=== PATIENT | male | born 1935 | race Caucasian/White ===

== ENCOUNTER 2018-02-17 13:13 | Inpatient (IN) | payer OTHER, MEDICAID ==
[2018-02-17] VITALS (7 sets, daily range): BP systolic 0–104; BP diastolic 0–42
[~2018-02-17] VITALS: Ht 188 cm; Wt 101.6 kg
--- NOTE | 2018-02-17 13:15 | NUR ---
ADMITTING DX: ABNORMAL LABS PLACED PATIENT ON A [employer] [id number] VENTILATOR WITH SETTINGS NOTED
--- NOTE | 2018-02-17 13:15 | NUR ---
PATIENT TO BED #7 BY PARAMEDICS
--- NOTE | 2018-02-17 13:24 | NUR ---
PT. CAME IN VIA ALS FROM [facility] DUE TO ABNORMAL LAB OF HGB: 6.5 AND POTASSIUM: 5.6. PT. HAS [address] HAS YELLOW URINE W/ SEDIMENT PRESENT. PT HAS PICC LINE TO R UPPER ARM. PT IS ON A VENT AT TV: 500, AC: 12 PEEP: 5, FIO2: 40%. PATIENT HAS A SACCRAL PRESSURE ULCER PRESENT UPON ARRIVAL. PT HAS PUPILS EQUAL ROUND AND REACTIVE BILATERALLY 2MM TO LIGHT. SKIN WARM AND DRY TO TOUCH. ER MD NOTIFIED. WILL CONTINUE TO MONITOR.
[2018-02-17] MEDS ORDERED: NACL 0.9% 1,000 ML IV ONE ×3 (13:40→17:25)
[2018-02-17] MEDS ORDERED: ZINC220C12 GT (13:48)
[2018-02-17] MEDS ORDERED: NUTR887L11 GT (13:48)
[2018-02-17] MEDS ORDERED: NOVN SUBQ (13:48)
[2018-02-17] MEDS ORDERED: ATOR10TA GT (13:48)
[2018-02-17] MEDS ORDERED: VITA1TAB44 GT (13:48)
[2018-02-17] MEDS ORDERED: FERR-252 GT (13:48)
[2018-02-17] MEDS ORDERED: DOCU-299 GT (13:48)
[2018-02-17] MEDS ORDERED: ASCO500T45 GT (13:48)
[2018-02-17] MEDS ORDERED: AMLO5TAB GT (13:48)
[2018-02-17] MEDS ORDERED: PANT40EC GT (13:48)
[2018-02-17] MEDS ORDERED: METO50TE2 GT (14:00)
[2018-02-17] MEDS ORDERED: KEP500 GT (14:00)
[2018-02-17] MEDS ORDERED: LACT1CAP21 GT (14:00)
--- NOTE | 2018-02-17 14:02 | NUR ---
LAB AT BEDSIDE.
[2018-02-17 14:10] LABS: BASOPHILS % (AUTO) 0.3 % (0.0-2.0); EOSINOPHILS # (AUTO) 0.4 K/uL (0-0.4); EOSINOPHILS % (AUTO) 3.9 % (0.0-4.0); HEMATOCRIT 21.3 % (36-52); LYMPHOCYTES # (AUTO) 1.6 K/uL (2.0-11.5); LYMPHOCYTES % (AUTO) 15.1 % (20.5-51.1); MEAN CORPUSCULAR HEMOGLOBIN 28 pg (27-31); MEAN CORPUSCULAR HGB CONC 29 g/dL (33-37); MEAN CORPUSCULAR VOLUME 94.3 fL (80-94); MONOCYTES # (AUTO) 0.7 K/uL (0.8-1.0); MONOCYTES % (AUTO) 7.1 % (1.7-9.3); NEUTROPHILS # (AUTO) 7.8 K/uL (1.8-7.7); NEUTROPHILS % (AUTO) 73.6 % (42.2-75.2); PLATELET COUNT (AUTO) 365 K/uL (140-450); RED BLOOD CELL COUNT(AUTO) 2.26 MIL/uL (4.20-6.10); RED CELL DISTRIBUTION WIDTH 17.8 % (11.6-13.7); WHITE BLOOD COUNT (AUTO) 10.5 K/uL (4.8-10.8)
--- NOTE | 2018-02-17 14:19 | NUR ---
FLOWER SOLIS CALLED TO REPORT ABNORMAL LABS OF HEMOGLOBIN 6.3 AND HEMATOCRIT 21.3. ER MD DR. LEGER NOTIFIED.
[2018-02-17 14:20] LABS: HEMOGLOBIN 6.3 g/dL (12.0-18.0)
[2018-02-17 14:27] LABS: PROTHROMBIN TIME 11.4 secs (10.8-13.4)
[2018-02-17 14:30] LABS: ALBUMIN 1.5 g/dL (3.4-5.0); ANION GAP 4.5 (8-16); ASPARTATE AMINOTRANSFERASE 131 U/L (15-37); CHLORIDE 123 mmol/L (98-107); CREATININE 1.1 mg/dL (0.7-1.3); GLUCOSE 180 mg/dL (74-106); POTASSIUM 5.1 mmol/L (3.5-5.1); TOTAL BILIRUBIN 0.2 mg/dL (0.0-1.0)
--- NOTE | 2018-02-17 14:33 | NUR ---
HAN Waller FROM LAB CALLED TO REPORT SODIUM : 164. ER MD LEGER NOTIFIED.
[2018-02-17 14:34] LABS: SODIUM SERUM 164 mmol/L (136-145)
[2018-02-17 14:35] LABS: CARBON DIOXIDE 41.6 mmol/L (21-32); UREA NITROGEN, BLOOD 84 mg/dL (7-18)
[2018-02-17] MEDS ORDERED: NACL 0.9% 2,000 ML IV ONE (14:35)
--- NOTE | 2018-02-17 14:35 | NUR ---
HAN Skinner CALLED FROM LAB W/ CRITICAL REPORT OF CO2 : 41.6. ER MD LEGER NOTIFIED.
[2018-02-17] MEDS ORDERED: PIPERACILLIN/TAZOBACTAM 3.375 GM in DEXTROSE 5% 50 ML IV ONE (14:55)
[2018-02-17] MEDS ORDERED: PIPERACILLIN/TAZOBACTAM 3.375 GM VIAL IV ONE (14:59)
[2018-02-17] MEDS ORDERED: ONDANSETRON 4 MG/2 ML VIAL IM/IVP PRN (15:15)
[2018-02-17] MEDS ORDERED: DOCUSATE SODIUM 100 MG GELCAP PO PRN (15:15)
[2018-02-17] MEDS ORDERED: HYDROcodone/APAP 5/325 MG 1 TAB TAB PO PRN (15:15)
[2018-02-17] MEDS ORDERED: MORPHINE SULFATE 2 MG/ML SYR IVP PRN (15:15)
[2018-02-17] MEDS ORDERED: ZOLPIDEM 5 MG TAB PO PRN (15:15)
--- NOTE | 2018-02-17 15:24 | NUR ---
NO EIVDENCE OF PULMONARY DISTRESS NOTED GOOD CHEST RISE BREATHS OUNDS RHONCHI BILATERAL DEEP TRACHEAL SUCTION FOR LARGE YELLOW WITH BLOOD TINGE SECRETIONS AIRWAY PATENT
--- NOTE | 2018-02-17 15:35 | NUR ---
RT AT BEDSIDE. PT IS RESTING COMFORTABLY IN BED. VSS AT THIS TIME. WILL CONTINUE TO MONITOR.
[2018-02-17 15:49] LABS: CHOL/HDL RATIO 3.3 (1-4.5); FREE T4 (FREE THYROXINE) 0.75 ng/dL (0.76-1.46); MAGNESIUM 3.2 mg/dL (1.8-2.4); PHOSPHORUS 3.7 mg/dL (2.5-4.9); THYROID STIMULATING HORMONE 2.24 uIU/mL (0.34-3.74)
[2018-02-17 15:52] LABS: APPEARANCE,URINE CLEAR (CLEAR); BILIRUBIN,URINE NEGATIVE (NEGATIVE); BLOOD, URINE 3+ (NEGATIVE); COLOR,URINE YELLOW (YELLOW); LEUKOCYTE ESTERASE ,URINE 1+ (NEGATIVE); NITRITE, URINE NEGATIVE (NEGATIVE); UGLUCOSE NEGATIVE (NEGATIVE)
[2018-02-17] MEDS ORDERED: DEXT 5% / NACL 0.45% 1,000 ML IV SCH (16:00)
[2018-02-17 16:03] LABS: BARBITURATE, URINE NEG. ng/ml (NEG <=200); BENZODIAZEPINE, URINE NEG. ng/mL (NEG <=200); CANNABINOID, URINE NEG. ng/mL (NEG <=50); COCAINE, URINE NEG. ng/mL (NEG <=300); OPIATE, URINE NEG. ng/mL (NEG <=2000); PHENCYCLIDINE SCREEN,URINE NEG. ng/mL (NEG <=25)
--- NOTE | 2018-02-17 16:05 | NUR ---
TRANSFERRED PATIENT TO [facility] 121-B WITH VENTILATOR INTACT WITH SETTINGS NOTED OXYGEN VIA E-TANKS WITH ADEQUATE PSI SATURATION 100% HR 85 TOLERATED TRANSFER WELL WITHOUT INCIDENT Belen CUTLER RCP AND BRODY NAYAK ATTENDING
--- NOTE | 2018-02-17 16:18 | NUR ---
PATIENT ARRIVED VIA GURNEY ACCOMPANIED BY TWO RESPIRATORY THERAPISTS AND EMERGENCY ROOM RN. PATIENT IS TRACH TO VENT AT THIS TIME. PATIENT RESPIRATIONS NOTED AT 12/MIN. PATIENT IS HYPOTENSIVE UPON VITAL SIGNS CHECK. ER NURSE ENDORSED 2 LITERS FOR ME TO BOLUS PATIENT. ALL VITAL SIGNS ARE WITHIN NORMAL LIMITS. PATIENT HAS MULTIPLE WOUNDS ON COCCYX AREA, HIP, LEFT HEEL, AND BILATERAL EARS. TRANSFERRED PATIENT TO TELEMETRY BED. APPLIED TELE MONITOR LEADS TO PATIENT. PATIENT HAS ZOSYN HANGING. NO REACTION NOTED. PATIENT IS APHASIC AND IS AROUSABLE TO SHAKING. SWABBED PATIENT'S NOSE WITH MRSA SCREEN TOOL. WILL CONTINUE TO MONITOR PATIENT.
--- NOTE | 2018-02-17 16:18 | NUR ---
Patient will be admitted to care of DR. BRIDGES. Admited to TELE. Will go to room 121B. Belongings list completed. Report to SHEN ADAMES .
[2018-02-17 16:50] LABS: RBC,URINE 80-100 /HPF (0-5)
[2018-02-17] MEDS ORDERED: PIPER/TAZO 3.375GM/D5W PREMIX 50 ML IV SCH (16:54)
[2018-02-17] MEDS ORDERED: METO-485 GT (16:57)
--- NOTE | 2018-02-17 17:12 | NUR ---
NO DISTRESS NOTED GOOD CHEST RISE BREATH SOUNDS COARSE RHONCHI BILATERAL DEEP TRACHEAL SUCTION FOR COPIOUS THICK PALE YELLOW WITH BLOOD STRAK SECRETIONS AIRWAY PATENT
--- NOTE | 2018-02-17 17:26 | NUR ---
TRANSFERRED PATIENT TO WOUND CARE BED. PATIENT TOLERATED WELL.
--- NOTE | 2018-02-17 17:26 | NUR ---
GRAPPLE SKIDDER OPERATOR ASSIST PATIENT TRANSFERRED TO A [place] [id number] AIR MATTRESS TOLERATED TRANSFER WELL WITHOUT INCIDENT
--- NOTE | 2018-02-17 17:35 | NUR ---
OBTAINED CONSENT FROM PATIENT'S SON KITTY BABB. PATIENT VERBALIZED PROCEDURE OF GIVING BLOOD TO HIS DAD. SHEN HURT VERIFIED WITH PATIENT'S SON WITH UNDERSTANDING OF PROCEDURE. DR. BLEDSOE AWARE AND SIGNED FORM WELL.
[2018-02-17] MEDS ORDERED: DEXTROSE 50% 50 ML SYR IVP PRN (17:45)
--- NOTE | 2018-02-17 17:55 | NUR ---
CHECKED PATIENT'S VITAL SIGNS. BLOOD PRESSURE IS HYPOTENSIVE AT THIS TIME. ALL VITAL SIGNS WITHIN NORMAL LIMITS. WILL OBTAIN BLOOD FROM BLOOD BANK
--- NOTE | 2018-02-17 18:25 | NUR ---
STARTED BLOOD FOR PATIENT. SITTING AT BEDSIDE MONITORING PATIENT. PATIENT IS HYPOTENSIVE AT THIS TIME. CONNECTED BOLUS LINE TO PATIENT. ALL OTHER VITAL SIGNS ARE STABLE. WILL CONTINUE TO MONITOR PATIENT.
--- NOTE | 2018-02-17 18:40 | NUR ---
PATIENT IS HYPOTENSIVE. ALL VITAL SIGNS ARE STABLE. NO FEVER NOTED. INCREASED PATIENT'S BLOOD TRANSFUSION TO 100 ML/HR. WILL CONTINUE TO MONITOR PATIENT.
--- NOTE | 2018-02-17 19:05 | NUR ---
GAVE REPORT TO NIGHTSHIFT NURSE AT BEDSIDE. PATIENT IS STABLE AT THIS TIME.
--- NOTE | 2018-02-17 19:06 | NUR ---
RECEIVED REPORT FROM DAY SHIFT NURSE ZACARIAS-SHEN. PATIENT IS APHASIC AND IS ABUSABLE TO SHAKING. PATIENT IS TRACH TO VENT AT THIS TIME. RIGHT UPPER ARM PICC LINE. G-TUBE FEEDING AND TAM CATHETER IN PLACE. PATIENT HAS MULTIPLE WOUNDS ON COCCYX AREA, HIP, LEFT HEEL, AND BILATERAL EARS. DISCUSSED PLAN OF CARE HOWEVER PT IS APHASIC AND UNABLE TO VERBALIZE UNDERSTANDING. WHITE BOARD UPDATED. NO S/S OF RESPIRATORY DISTRESS OR DISCOMFORT NOTED AT THIS TIME. BED IN LOWEST POSITION, BED BREAKS ON, SIDE RAILS UP. BED SIDE TABLE AND CALL LIGHT WITHIN REACH. WILL CONTINUE TO MONITOR.
--- NOTE | 2018-02-17 19:10 | NUR ---
PATIENT'S VITAL SIGNS ARE STABLE AT THIS TIME. PATIENT IS STILL HYPOTENSIVE.
[2018-02-17] MEDS: ALBUTEROL SULFATE/IPRATROPIU 3 ML SOL IH SCH (19:26)
--- NOTE | 2018-02-17 19:42 | NUR ---
BLOOD GLUCOSE 91-NO INSULIN COVERAGE NEEDED. WILL CONTINUE TO MONITOR.
--- NOTE | 2018-02-17 20:00 | NUR ---
VITAL SIGNS TAKEN AND TOLERATED WELL. NO S/S OF RESPIRATORY DISTRESS OR DISCOMFORT NOTED AT THIS TIME. WILL CONTINUE TO MONITOR.
[2018-02-17] MEDS: BLOOD GLUCOSE MONITORING 1 DEV DEV FS SCH (20:09)
[2018-02-17] MEDS: METOCLOPRAMIDE 10 MG TAB GT SCH (20:26)
[2018-02-17] MEDS: ATORVASTATIN 20 MG TAB GT SCH (20:26)
[2018-02-17] MEDS: INSULIN NPH HUMAN ISOPHANE 100 UNIT/ML VIAL SUBQ SCH (20:42)
--- NOTE | 2018-02-17 20:44 | NUR ---
SCHEDULED MEDICATION GIVEN VIA G-TUBE AND TOLERATED WELL. G-TUBE HAS ZERO RESIDUAL, PATENT AND FLUSHING WELL. SECOND BAG OF NS 0.9% 1,000ML WAS HUNG TO COMPLETE 2,000ML WIDE OPEN NS ORDER. BLOOD STILL INFUSING AND TOLERATED WELL. WILL CONTINUE TO MONITOR.
--- NOTE | 2018-02-17 20:50 | NUR ---
BLOOD TRANSFUSION COMPLETED. PT TOLERATED WELL. WILL CONTINUE TO MONITOR.
--- NOTE | 2018-02-17 20:58 | NUR ---
PHILLIP ARMIJO AND PHILLIP WOODSON ASSISTING PT WITH PERINEAL CARE. PT TOLERATED WELL. WILL CONTINUE TO MONITOR.
[2018-02-17] MEDS ORDERED: levETIRAcetam 500 MG TAB GT SCH (21:00)
[2018-02-17] MEDS: ACETAMINOPHEN 325 MG TAB PO PRN (22:24)
[2018-02-17 22:27] LABS: ANION GAP 7.4 (8-16); CHLORIDE 125 mmol/L (98-107); GLUCOSE 93 mg/dL (74-106); POTASSIUM 4.4 mmol/L (3.5-5.1)
--- NOTE | 2018-02-17 22:27 | NUR ---
SPOKE WITH DR. MOORE OF PT INCREASING TEMPERATURE AFTER BLOOD TRANSFUSION: 99.8F TEMPORAL AFTER COMPLETION OF BLOOD TRANSFUSION AND NOW 100.8F TEMPORAL. ADVISED TO GIVE TYLENOL 650MG VIA G-TUBE AND START COOLING MEASURES. WILL REASSESS IN ONE HOUR.
[2018-02-17 22:31] LABS: SODIUM SERUM 167 mmol/L (136-145); UREA NITROGEN, BLOOD 72 mg/dL (7-18)
--- NOTE | 2018-02-17 22:35 | NUR ---
SPOKE WITH DR. MAR ABOUT CRITICAL LAB VALUES NA-167, BUN-72, CO2-39. ALSO INFORMED HER THE NS IVF SECOND BAG OF BOLUS IS ABOUT TO FINISH INFUSING. ONCE THAT BAG IS DONE, D5/NS0.45 TO BEGIN IN FUSING. LABS TO FOLLOW IN THE AM. WILL CONTINUE TO MONITOR.
[2018-02-17] MEDS: PIPER/TAZO 3.375GM/D5W PREMIX 50 ML IV SCH (22:51)
[2018-02-18] VITALS (8 sets, daily range): BP systolic 0–131; BP diastolic 0–49
--- NOTE | 2018-02-18 00:13 | NUR ---
SPOKE WITH DR. BOOGIE ABOUT TEMPERATURE STILL ELEVATED ALTHOUGH DECREASED TO 100.1 BOTH TEMPORAL AND AXILIARY. DR ADVISED ME TO GIVE ANOTHER DOSE OF TYLENOL 650MG VIA G-TUBE. IF FEVER HAS NOT BROKEN IN ONE HOUR THEN TO NOTIFY HER AND SHE WILL PUT IN AN ORDER. WILL CONTINUE TO MONITOR.
[2018-02-18] MEDS ORDERED: ACETAMINOPHEN 325 MG TAB PO ONE (01:00)
[2018-02-18 01:30] LABS: ANION GAP 7.5 (8-16); CARBON DIOXIDE 37.7 mmol/L (21-32); CHLORIDE 126 mmol/L (98-107); GLUCOSE 126 mg/dL (74-106); POTASSIUM 4.2 mmol/L (3.5-5.1)
[2018-02-18 01:39] LABS: SODIUM SERUM 167 mmol/L (136-145); UREA NITROGEN, BLOOD 71 mg/dL (7-18)
--- NOTE | 2018-02-18 01:42 | NUR ---
RECEIVED CRITICAL LAB VALUES: NA-167, BUN-71. DR. MOORE IN NURSES STATION AND MADE HER AWARE OF THESE CRITICAL VALUES. SHE WILL CONTINUE WITH PREVIOUS ORDERS.
--- NOTE | 2018-02-18 02:00 | NUR ---
PT CONTINUES TO SLEEP. NO S/S OF RESPIRATORY DISTRESS OR DISCOMFORT NOTED AT THIS TIME. WILL CONTINUE TO MONITOR.
--- NOTE | 2018-02-18 03:00 | NUR ---
SACRAL WOUND CULTURE SWAB COLLECTED AND SENT TO THE LAB.
--- NOTE | 2018-02-18 04:00 | NUR ---
VITAL SIGNS TAKEN AND TOLERATED WELL. NO S/S OF RESPIRATORY DISTRESS OR DISCOMFORT NOTED. TEMPERATURE CONTINUES TO DECREASE. 98.6F-TEMPORAL, 99.4-AXILIARY. DR. MOORE AWARE. WILL CONTINUE TO MONITOR.
[2018-02-18] MEDS: METOCLOPRAMIDE 10 MG TAB GT SCH (04:08)
[2018-02-18] MEDS: PIPER/TAZO 3.375GM/D5W PREMIX 50 ML IV SCH ×3 (04:09→22:54)
--- NOTE | 2018-02-18 04:10 | NUR ---
SCHEDULED MEDICATION GIVEN AND TOLERATED WELL. NO S/S OF RESPIRATORY DISTRESS OR DISCOMFORT NOTED AT THIS TIME. WILL CONTINUE TO MONITOR.
--- NOTE | 2018-02-18 04:30 | NUR ---
BLOOD GLUCOSE 151-WILL ADMINISTER INSULIN COVERAGE PER PROTOCOL.
[2018-02-18] MEDS: BLOOD GLUCOSE MONITORING 1 DEV DEV FS SCH ×4 (04:43→21:34)
[2018-02-18] MEDS ORDERED: DOCUSATE 100 MG/10 ML UDC GT PRN (05:00)
[2018-02-18] MEDS: PANTOPRAZOLE 40 MG INJ VIAL IVP SCH (05:51)
[2018-02-18] MEDS: INSULIN LISPRO SLIDING SCALE 100 UNITS/ML VIAL SUBQ PRN ×4 (06:00→21:34)
--- NOTE | 2018-02-18 06:00 | NUR ---
SCHEDULED MEDICATION, INSULIN GIVEN AND TOLERATED WELL. NO S/S OF RESPIRATORY DISTRESS NOTED AT THIS TIME. WILL CONTINUE TO MONITOR.
[2018-02-18] MEDS ORDERED: PANTOPRAZOLE 40 MG TABEC PO SCH (06:30)
[2018-02-18] MEDS: ALBUTEROL SULFATE/IPRATROPIU 3 ML SOL IH SCH ×3 (07:05→19:59)
[2018-02-18] MEDS ORDERED: DEXT 5% / NACL 0.45% 1,000 ML IV SCH (07:05)
--- NOTE | 2018-02-18 07:05 | NUR ---
RECEIVED REPORT FROM NIGHTSHIFT NURSE AT BEDSIDE. PATIENT IS AWAKE AT THIS TIME. PATIENT IS APHASIC. PATIENT IS TRACH TO VENT. O2 SATURATION AT 100%. NO RESPIRATORY DISTRESS NOTED AT THIS TIME. NO PAIN NOTED. PATIENT DOES NOT PRESENT WITH A FEVER AND BLOOD PRESSURE IS 114/43, 76 HR. PATIENT HAS D5 0.45 NS HANGING AT THIS TIME. PICC LINE NOTED ON RIGHT UPPER ARM DOUBLE LUMEN. MULTIPLE WOUNDS NOTED ON LEFT HEEL, COCCYX AREA, AND BILATERAL EARS. PATIENT ON SEIZURE PRECAUTIONS. LOWERED BED TO LOWEST SETTING. UPDATED BOARD IN PATIENT'S ROOM. APPROPRIATE SIGNS PLACED OUTSIDE OF ROOM. WILL CONTINUE TO MONITOR PATIENT.
--- NOTE | 2018-02-18 07:11 | NUR ---
ENDORSED PT CARE TO DAY SHIFT NURSE EPHRAIM FOR CONTINUITY OF CARE.
--- NOTE | 2018-02-18 07:20 | NUR ---
RECEIVED PATIENT TRACH SHILEY 6 TO VENT ON SETTINGS: AC 500, 12, +5, 50%. VENT CHECK DONE. VENT ALARMS ON AND AUDIBLE. VENT PLUGGED INTO RED OUTLET. VENT ALARMS ON AND AUDIBLE. PULSE OX AT BEDSIDE, ON AND FUNCTIONING. AMBU BAG AT BEDSIDE. AIRWAY SECURE AND PATENT. SUCTIONED MODERATE AMOUNT OF THICK WHITE/PINK SECRETIONS. SCHEDULED BREATHING TREATMENT ADMINISTERED. PATIENT TOLERATED TX WELL, NO ADVERSE SIDE EFFECTS. NO RESPIRATORY DISTRESS NOTED AT THIS TIME. WILL CONTINUE TO MONITOR.
[2018-02-18 07:35] LABS: BASOPHILS # (AUTO) 0.1 K/uL (0.00-0.22); MEAN CORPUSCULAR HGB CONC 30 g/dL (33-37); MONOCYTES # (AUTO) 0.8 K/uL (0.8-1.0); RED BLOOD CELL COUNT(AUTO) 2.49 MIL/uL (4.20-6.10)
[2018-02-18 07:39] LABS: CHLORIDE 123 mmol/L (98-107); CREATININE 1.1 mg/dL (0.7-1.3); GLUCOSE 172 mg/dL (74-106)
[2018-02-18 07:42] LABS: SODIUM SERUM 165 mmol/L (136-145)
[2018-02-18 07:43] LABS: BASOPHILS % (AUTO) 1.1 % (0.0-2.0); EOSINOPHILS # (AUTO) 0.5 K/uL (0-0.4); LYMPHOCYTES % (AUTO) 15.6 % (20.5-51.1); MEAN CORPUSCULAR HEMOGLOBIN 27 pg (27-31); MEAN CORPUSCULAR VOLUME 91.3 fL (80-94); MONOCYTES % (AUTO) 6.3 % (1.7-9.3); NEUTROPHILS # (AUTO) 9.3 K/uL (1.8-7.7); PLATELET COUNT (AUTO) 347 K/uL (140-450); UREA NITROGEN, BLOOD 66 mg/dL (7-18); WHITE BLOOD COUNT (AUTO) 12.8 K/uL (4.8-10.8)
[2018-02-18 07:51] LABS: HEMATOCRIT 22.8 % (36-52)
[2018-02-18 08:07] LABS: HEMOGLOBIN 6.7 g/dL (12.0-18.0)
[2018-02-18] MEDS: levETIRAcetam 100 MG/ML ORASYR GT SCH ×2 (09:02→21:19)
[2018-02-18] MEDS: ZINC SULF 220 MG CAP GT SCH (09:03)
[2018-02-18] MEDS: LACTOBACILLUS RHAMNOSUS GG 1 EACH CAP PO SCH (09:03)
[2018-02-18] MEDS: VIT-B COMP/VIT-C/FOLIC ACID 1 TAB GT SCH (09:03)
[2018-02-18] MEDS: ASCORBIC ACID 500 MG/5 ML ORASYR GT SCH (09:03)
--- NOTE | 2018-02-18 09:22 | NUR ---
PATIENT RESTING IN BED. NO DISTRESS NOTED. WILL CONTINUE TO MONITOR PATIENT.
[2018-02-18] MEDS: INSULIN NPH HUMAN ISOPHANE 100 UNIT/ML VIAL SUBQ SCH ×2 (09:34→21:32)
--- NOTE | 2018-02-18 09:40 | NUR ---
VENT CHECK DONE. NO RESPIRATORY DISTRESS NOTED AT THIS TIME. WILL CONTINUE TO MONITOR.
--- NOTE | 2018-02-18 09:55 | NUR ---
02/18/18 RD INITIAL ASSESSMENT COMPLETED PLEASE REFER TO NUTRITION ASSESSMENT UNDER CARE ACTIVITY FOR ESTIMATED NUTRITIONAL NEEDS. RD RECOMMENDATIONS: 1. IF/WHEN MEDICALLY APPROPRIATE, RECOMMEND STARTING JEVITY 1.2 TO RUN AT 35 ML/HR, INCREASE BY 10 ML Q4H TOLERATED TO GOAL OF 75 ML/HR. AT GOAL OF 75 ML/HR, JEVITY 1.2 WILL PROVIDE 1800 ML, 2160 KCAL, 99.8 GM PROTEIN, AND 1452 ML FREE WATER TO MEET 79% EST KCAL AND 73% EST PROTEIN NEEDS. 2. IF/WHEN MEDICALLY APPOROPRIATE, RECOMMEND STARTING WATER FLUSHES OF 120 ML Q4H TO PROVIDE 720 ML FREE WATER. 3. RECOMMEND ELA QD. 4. RECOMMEND THERAGRAN QD. 5. RD WILL F/U 2-3 DAYS; HIGH RISK. REGGIE HINES, , RDN
--- NOTE | 2018-02-18 11:00 | NUR ---
STARTED PATIENT'S TUBE FEEDING JEVITY 1.2 AT 35 ML/HR. WILL CONTINUE TO MONITOR
--- NOTE | 2018-02-18 11:20 | NUR ---
VENT CHECK DONE. SUCTIONED MODERATE AMOUNT OF THICK WHITE SECRETIONS. NO RESPIRATORY DISTRESS NOTED AT THIS TIME. WILL CONTINUE TO MONITOR.
[2018-02-18] MEDS: THERAHONEY GEL 42.5 GM TP SCH (12:00)
--- NOTE | 2018-02-18 12:00 | NUR ---
CLEANSED PATIENT'S WOUNDS ON BOTTOM SACRAL AREA AND RIGHT HIPS WITH WOUND CARE CLEANSER AND PAT DRY. APPLIED THERAHONEY ONTO PATIENTS WOUNDS. COVERED WOUND WITH HYDROCOLLOID DRESSINGS. PATIENT TOLERATED WELL. WILL CONTINUE TO MONITOR PATIENT.
[2018-02-18] MEDS: DEXTROSE 5% 1,000 ML IV SCH (12:07)
[2018-02-18] MEDS: METOCLOPRAMIDE 10 MG/10 ML SYRP UDC GT SCH ×2 (12:51→21:13)
--- NOTE | 2018-02-18 13:16 | NUR ---
VENT CHECK DONE. SCHEDULED BREATHING TX ADMINISTERED. PATIENT TOELRATED TX WELL. NO ADVERSE SIDE EFFECTS. NO RESPIRATORY DISTRESS NOTED AT THIS TIME. WILL CONTINUE TO MONITOR.
--- NOTE | 2018-02-18 14:50 | NUR ---
PATIENT RESTING. NO DISTRESS NOTED. WILL CONTINUE TO MONITOR PATIENT.
[2018-02-18 15:29] LABS: CARBON DIOXIDE 37.5 mmol/L (21-32); CHLORIDE 124 mmol/L (98-107); GLUCOSE 213 mg/dL (74-106); POTASSIUM 3.5 mmol/L (3.5-5.1); UREA NITROGEN, BLOOD 56 mg/dL (7-18)
[2018-02-18 15:31] LABS: SODIUM SERUM 166 mmol/L (136-145)
[2018-02-18 17:33] LABS: FERRITIN 1742 ng/mL (30-400); FOLIC ACID > 20.00 ng/mL (>3.0)
[2018-02-18] MEDS: ACETAMINOPHEN 325 MG TAB PO SCH ×2 (17:56→20:11)
--- NOTE | 2018-02-18 18:45 | NUR ---
BLOOD TRANSFUSION STARTED. SITTING AT BEDSIDE MONITORING PATIENT. NO SIGNS OF FEVER AT THIS TIME OR ANY KINDS OF REACTION. WILL CONTINUE TO MONITOR
--- NOTE | 2018-02-18 19:23 | NUR ---
GAVE REPORT TO [facility] NURSE. PATIENT STILL RECEIVING BLOOD. PATIENT IN STABLE CONDITION. WILL CONTINUE TO MONITOR PATIENT. Addendum: 02/18/18 at 1937 by Kemal Do II, RN *ENDORSED CARE TO SHEN WILHELM. MELONIE WILL CONTINUE TO MONITOR PATIENT DURING BLOOD TRANSFUSION.
--- NOTE | 2018-02-18 19:25 | NUR ---
RECEIVED PT ON BED, OPEN EYES TO TOUCH WITH TRACKING, APHASIC, TRACH TO VENT, SAT-100% ON 50% FI02, RECEIVING 1ST UNIT PRBC AT THIS TIME VIA RT UA PICC LINE, MONITOR CLOSELY FOR REACTION, VITAL SIGNS PER PROTOCOL, FLACC-0, G-TUBE FEEDING AT 45 ML/H WITH 200ML WATER FLUSH Q4H, MAINTAIN HOB AT ALL TIMES, TAM CATH IN PLACE WITH YELLOW URINE, ON HILL ROM BED, REPOSITION Q2H AND OFFLOAD PRESSURES AREAS, SAFETY MEASURES IN PLACE, PLAN OF CARE DISCUSSED WITH DAUGHTER AT BEDSIDE, CALL LIGHT WITHIN REACH.
[2018-02-18 20:11] LABS: TRANSFERRIN 121 mg/dL (200-370)
--- NOTE | 2018-02-18 20:15 | NUR ---
TEMP-100.5, 70ML G-TUBE RESIDUAL NOTED, DUE BENADRYL AND TYLENOL GIVEN VIA G-TUBE, COOLING MEASURES DONE, ALL NEEDS ANTICIPATED.
--- NOTE | 2018-02-18 20:30 | NUR ---
DR DAIGLE HERE FOR NEPHRO CONSULT, UPDATED ON PT'S CONDITION, WENT TO PT'S ROOM AND TALKED TO DAUGHTER, WITH ORDER FOR BMP Q4H, CALLED LAB AND TALKED TO INDU REGARDING ORDER, WILL DRAW PT, MONITORED CLOSELY.
[2018-02-18] MEDS: ATORVASTATIN 20 MG TAB GT SCH (21:16)
--- NOTE | 2018-02-18 22:10 | NUR ---
1ST UNIT PRBC DONE, NO REACTION NOTED, 2ND UNIT PRBC STARTED, MONITOR FOR REACTION, VITAL SIGNS PER PROTOCOL.
[2018-02-18 22:19] LABS: ANION GAP 11.8 (8-16); CARBON DIOXIDE 33.9 mmol/L (21-32); CHLORIDE 123 mmol/L (98-107); CREATININE 1.1 mg/dL (0.7-1.3); GLUCOSE 195 mg/dL (74-106); POTASSIUM 3.7 mmol/L (3.5-5.1); UREA NITROGEN, BLOOD 52 mg/dL (7-18)
[2018-02-18 22:30] LABS: SODIUM SERUM 165 mmol/L (136-145)
[2018-02-19] VITALS (7 sets, daily range): BP systolic 0–150; BP diastolic 0–54
[2018-02-19] MEDS: ACETAMINOPHEN 325 MG TAB PO SCH (00:03)
--- NOTE | 2018-02-19 00:20 | NUR ---
VITAL SIGNS TAKEN, TEMP-100.0, 110 ML G-TUBE RESIDUAL NOTED, DUE BENADRYL AND TYLENOL GIVEN, DR DAIGLE CALLED AND UPDATED ON PT'S CONDITION, ORDERED TO INCREASED G-TUBE FREE WATER FLUSH TO 200ML Q2H UNTIL 0800 TODAY THEN GO BACK TO 200ML Q4H, AWARE OF 110ML RESIDUAL JUST NOW, 2ND UNIT PRBC ON-GOING, CONTINUE TO REPOSITION Q2H AND OFFLOAD PRESSURE AREAS, MONITORED CLOSELY.
[2018-02-19 00:32] LABS: ANION GAP 8.7 (8-16); CARBON DIOXIDE 35.8 mmol/L (21-32); CHLORIDE 124 mmol/L (98-107); GLUCOSE 202 mg/dL (74-106); POTASSIUM 3.5 mmol/L (3.5-5.1); UREA NITROGEN, BLOOD 47 mg/dL (7-18)
[2018-02-19 00:37] LABS: SODIUM SERUM 165 mmol/L (136-145)
--- NOTE | 2018-02-19 00:48 | NUR ---
DR CHOWDHURY CHANGED FREE WATER FLUSH TO 200L Q2H, FEEDING PUMP SETTING ONLY ALLOWED FREE WATER FLUSH TO Q3H THE LOWEST SETTING, DR CHOWDHURY MADE AWARE, SHE SAID "THATS YANIRA, MAINTAINED IT TO 200ML Q3H", ORDER CARRIED OUT.
[2018-02-19] MEDS: DEXTROSE 5% 1,000 ML IV SCH ×3 (01:18→23:09)
[2018-02-19] MEDS: METOCLOPRAMIDE 10 MG/10 ML SYRP UDC GT SCH ×3 (04:09→20:07)
[2018-02-19] MEDS: PIPER/TAZO 3.375GM/D5W PREMIX 50 ML IV SCH ×3 (04:10→20:12)
--- NOTE | 2018-02-19 04:10 | NUR ---
220 ML RESIDUAL NOTED, FEEDING HOLD PER PARAMETER, DR CHOWDHURY MADE AWARE, DUE MEDS ADMINISTERED VIA G-TUBE, WILL RECHECKED RESIDUAL LATER, VITAL SIGNS STABLE, TEMP-99.8, IVF INFUSING WELL, MONITORED CLOSELY.
[2018-02-19 04:52] LABS: ANION GAP 7.4 (8-16); CARBON DIOXIDE 36.1 mmol/L (21-32); CHLORIDE 123 mmol/L (98-107); GLUCOSE 217 mg/dL (74-106); POTASSIUM 3.5 mmol/L (3.5-5.1); UREA NITROGEN, BLOOD 46 mg/dL (7-18)
[2018-02-19 05:10] LABS: SODIUM SERUM 163 mmol/L (136-145)
[2018-02-19] MEDS: PANTOPRAZOLE 40 MG INJ VIAL IVP SCH (05:30)
--- NOTE | 2018-02-19 05:30 | NUR ---
70 ML RESIDUAL NOTED, DR SAM MADE AWARE, STATED IT'S YANIRA TO RESTART FEEDING, ORAL CARE DONE USING VAP KIT, TOLERATED WELL, MONITORED CLOSELY.
[2018-02-19] MEDS: INSULIN LISPRO SLIDING SCALE 100 UNITS/ML VIAL SUBQ PRN ×4 (05:45→20:23)
[2018-02-19] MEDS: BLOOD GLUCOSE MONITORING 1 DEV DEV FS SCH ×4 (06:30→21:16)
[2018-02-19] MEDS: ALBUTEROL SULFATE/IPRATROPIU 3 ML SOL IH SCH ×3 (07:15→19:23)
--- NOTE | 2018-02-19 07:28 | NUR ---
PT SLEEPING, NO SIGNS OF DISTRESS, REPORT GIVEN TO RN DENNIS FOR CONTINUITY OF CARE.
--- NOTE | 2018-02-19 07:30 | NUR ---
RECEIVED PT ALERT, APHASIC. NO SIGNS OF PAIN. WITH TRACH ATTACHED TO MECHANICAL VENT. NO SOB NOTED. PT DOES EYE TRACKING. WITH PICC LINE ON RT UPPER ARM PATENT AND INTACT. RT AND LT UPPER EXTREMITIES SWOLLEN, ELEVATED WITH PILLOWS. CHEST, DIMINISHED AIR ENTRY TO THE BASES, OTHERWISE CLEAR. ABDOMEN SOFT, BOWEL SOUNDS PRESENT, WITH G-TUBE IN PLACE, RESIDUAL 100 MLS. WITH TAM CATHETER DRAINING MODERATE AMOUNTS OF CLEAR SLIGHTLY HANNAH URINE. WILL REPOSITION PT EVERY 2 HRS. CALL LIGHT WITHIN, BED ON LOW POSITION WITH 3 SIDE RAILS UP.
--- NOTE | 2018-02-19 07:36 | NUR ---
RECEIVED PATIENT TRACH SHILEY 6 TO VENT ON DOCUMENTED SETTINGS: AC 12, 500,+5, 50%. VENT CHECK DONE. VENT ALARMS ON AND AUDIBLE. AMBU BAG AT BEDSIDE. SCHEDULED BREATHING TREATMENT ADMINISTERED. NO ADVERSE SIDE EFFECTS. AIRWAY SECURE AND PATENT. SUCTIONED SMALL AMOUNT OF THICK WHITE SECRETIONS. ORAL CARE PROVIDED. NO RESPIRATORY DISTRESS AT THIS TIME. WILL CONTINUE TO MONITOR.
[2018-02-19 07:41] LABS: BASOPHILS % (AUTO) 0.3 % (0.0-2.0); EOSINOPHILS # (AUTO) 0.5 K/uL (0-0.4); HEMATOCRIT 26.9 % (36-52); HEMOGLOBIN 8.5 g/dL (12.0-18.0); LYMPHOCYTES # (AUTO) 1.7 K/uL (2.0-11.5); LYMPHOCYTES % (AUTO) 16.2 % (20.5-51.1); MEAN CORPUSCULAR HEMOGLOBIN 28 pg (27-31); MEAN CORPUSCULAR HGB CONC 32 g/dL (33-37); MEAN CORPUSCULAR VOLUME 87.9 fL (80-94); MONOCYTES # (AUTO) 0.6 K/uL (0.8-1.0); NEUTROPHILS # (AUTO) 7.6 K/uL (1.8-7.7); NEUTROPHILS % (AUTO) 72.5 % (42.2-75.2); PLATELET COUNT (AUTO) 357 K/uL (140-450); RED BLOOD CELL COUNT(AUTO) 3.06 MIL/uL (4.20-6.10); RED CELL DISTRIBUTION WIDTH 17.4 % (11.6-13.7); WHITE BLOOD COUNT (AUTO) 10.5 K/uL (4.8-10.8)
[2018-02-19 07:54] LABS: ANION GAP 10.6 (8-16); CARBON DIOXIDE 34.8 mmol/L (21-32); CHLORIDE 122 mmol/L (98-107); GLUCOSE 209 mg/dL (74-106); POTASSIUM 3.4 mmol/L (3.5-5.1); UREA NITROGEN, BLOOD 41 mg/dL (7-18)
[2018-02-19 08:00] LABS: MAGNESIUM 2.4 mg/dL (1.8-2.4); PHOSPHORUS 3.4 mg/dL (2.5-4.9); SODIUM SERUM 164 mmol/L (136-145)
--- NOTE | 2018-02-19 09:10 | NUR ---
VENT CHECK DONE. NO RESPIRATORY DISTRESS AT THIS TIME. WILL CONTINUE TO MONITOR.
[2018-02-19] MEDS: levETIRAcetam 100 MG/ML ORASYR GT SCH ×2 (09:22→20:07)
[2018-02-19] MEDS: VIT-B COMP/VIT-C/FOLIC ACID 1 TAB GT SCH (09:22)
[2018-02-19] MEDS: ASCORBIC ACID 500 MG/5 ML ORASYR GT SCH (09:22)
[2018-02-19] MEDS: ZINC SULF 220 MG CAP GT SCH (09:22)
[2018-02-19] MEDS: LACTOBACILLUS RHAMNOSUS GG 1 EACH CAP PO SCH (09:22)
[2018-02-19] MEDS: INSULIN NPH HUMAN ISOPHANE 100 UNIT/ML VIAL SUBQ SCH ×2 (09:24→20:23)
--- NOTE | 2018-02-19 09:30 | NUR ---
LATEST G-TUBE RESIDUAL: 120 MLS, FEEDING STILL AT 55 MLS/HR. WILL CONTINUE TO MONITOR.
[2018-02-19 09:38] LABS: ANION GAP 9.6 (8-16); CARBON DIOXIDE 34.8 mmol/L (21-32); CHLORIDE 122 mmol/L (98-107); GLUCOSE 224 mg/dL (74-106); POTASSIUM 3.4 mmol/L (3.5-5.1); UREA NITROGEN, BLOOD 39 mg/dL (7-18)
[2018-02-19 09:44] LABS: SODIUM SERUM 163 mmol/L (136-145)
[2018-02-19 10:06] LABS: HEPATITIS A ANTIBODY IGM Negative (Negative); HEPATITIS B CORE AB TOTAL Negative (Negative); HEPATITIS B SURFACE ANTIBODY Non Reactive (.); HEPATITIS B SURFACE ANTIGEN Negative (Negative)
--- NOTE | 2018-02-19 11:14 | NUR ---
VENT CHECK DONE. NO RESPIRATORY DISTRESS AT THIS TIME. WILL CONTINUE TO MONITOR.
--- NOTE | 2018-02-19 12:00 | NUR ---
PT MORE ALERT AT THIS TIME, DAUGHTER TALKING TO PT AT THE BEDSIDE.
--- NOTE | 2018-02-19 12:00 | NUR ---
PT'S G-TUBE RESIDUAL: 200 MLS, WILL HOLD FEEDING FOR AN HOUR.
[2018-02-19 12:10] LABS: OSMOLALITY,URINE 502 mOsmol/kg (.)
[2018-02-19] MEDS: THERAHONEY GEL 42.5 GM TP SCH (13:00)
--- NOTE | 2018-02-19 13:00 | NUR ---
G-TUBE RESIDUAL RECHECKED: 50 MLS, FEEDING RATE STILL AT 55 MLS/HR.
--- NOTE | 2018-02-19 13:20 | NUR ---
VENT CHECK DONE. SCHEDULED BREATHING TREATMENT ADMINISTERED. PT TOLERATED TX WELL, NO ADVERSE SIDE EFFECTS. SCHEDULED LARGE AMOUNT OF THICK PALE YELLOW SECRETIONS. NO RESPIRATORY DISTRESS NOTED AT THIS TIME. WILL CONTINUE TO MONITOR.
[2018-02-19 13:39] LABS: ANION GAP 8.4 (8-16); CARBON DIOXIDE 34.9 mmol/L (21-32); CHLORIDE 121 mmol/L (98-107); GLUCOSE 238 mg/dL (74-106); POTASSIUM 3.3 mmol/L (3.5-5.1); UREA NITROGEN, BLOOD 34 mg/dL (7-18)
[2018-02-19 13:44] LABS: SODIUM SERUM 161 mmol/L (136-145)
--- NOTE | 2018-02-19 15:40 | NUR ---
VENT CHECK DONE. SUCTIONED SMALL AMOUNT OF THICK YELLOW SECRETIONS. NO RESPIRATORY DISTRESS AT THIS TIME. WILL CONTINUE TO MONITOR.
--- NOTE | 2018-02-19 16:00 | NUR ---
PT'S LATEST TEMP : 100.3 F, COOLING MEASURES STARTED. WILL CONTINUE TO MONITOR.
[2018-02-19] MEDS: ACETAMINOPHEN 325 MG TAB PO PRN (16:29)
--- NOTE | 2018-02-19 16:30 | NUR ---
TEMPERATURE RECHECKED: 100.4 F, TYLENOL VIA GT TUBE GIVEN PRN. WILL CONTINUE TO MONITOR.
--- NOTE | 2018-02-19 17:50 | NUR ---
VENT CHECK DONE. TRACH CARE PERFORMED WITHOUT INCIDENT. NO RESPIRATORY DISTRESS AT THIS TIME. WILL CONTINUE TO MONITOR.
--- NOTE | 2018-02-19 18:00 | NUR ---
LATEST G-TUBE RESIDUAL: 50 MLS, FEEDING INCREASED TO 65 MLS/HR.
[2018-02-19 18:18] LABS: ANION GAP 9.3 (8-16); CARBON DIOXIDE 34.1 mmol/L (21-32); CHLORIDE 118 mmol/L (98-107); GLUCOSE 230 mg/dL (74-106); POTASSIUM 3.4 mmol/L (3.5-5.1); SODIUM SERUM 158 mmol/L (136-145); UREA NITROGEN, BLOOD 30 mg/dL (7-18)
--- NOTE | 2018-02-19 19:05 | NUR ---
PT RESTING. NO SOB NOTED. NO SIGNS OF PAIN. ENDORSED TO NEXT SHIFT NURSE FOR CONTINUITY OF CARE.
--- NOTE | 2018-02-19 19:10 | NUR ---
RECEIVED PT AWAKE LYING ON BED, AAOX4, CALM AND COOPERATIVE, VITAL SIGNS STABLE, IVF INFUSING WELL, AWAITING DR Rodrigo NAVARRO, PT'S WANTS TO GO HOME AND REQUESTING PRESCRIPTION FOR ATIVAN, WILL INFORM DR NAVARRO WHEN HE COMES IN, SAFETY MEASURES IN PLACE, CONTINUE TO MONITOR FOR SIGNS OF ALCOHOL WITHDRAWAL, CALL LIGHT WITHIN REACH. Addendum: 02/19/18 at 2309 by Dexter Justin RN CHARTED ON WRONG PT.
--- NOTE | 2018-02-19 19:15 | NUR ---
RECEIVED PT ON BED, OPEN EYES TO TOUCH WITH TRACKING, APHASIC, TRACH TO VENT, SAT-97% ON 50% FI02, NO SOB NOTED, IVF OF D5W AT 125ML/H VIA RT UA PICC LINE, FLACC-0, TEMP-100.8, TYLENOL JUST GIVEN AT 1629, COOLING MEASURES DONE, G-TUBE FEEDING AT 65 ML/H WITH 200ML WATER FLUSH Q3H, MAINTAIN HOB AT ALL TIMES, TAM CATH IN PLACE WITH YELLOW URINE, ON HILL ROM BED, REPOSITION Q2H AND OFFLOAD PRESSURES AREAS, SAFETY MEASURES IN PLACE, CALL LIGHT WITHIN REACH
[2018-02-19] MEDS: METOPROLOL 50 MG TAB PO SCH (20:05)
[2018-02-19] MEDS: ATORVASTATIN 20 MG TAB GT SCH (20:06)
[2018-02-19] MEDS: amLODIPine 5 MG TAB PO SCH (20:06)
--- NOTE | 2018-02-19 20:10 | NUR ---
100ML RESIDUAL NOTED, DUE MEDS ADMINISTERED, TOLERATED WELL, BLOOD SUGAR CHECKED WITH 214 RESULT, RISS AND DUE HUMULIN N ADMINISTERED, REPOSITION AND OFF LOAD PRESSURE AREAS, CONTINUE COOLING MEASURES, NEEDS ANTICIPATED.
--- NOTE | 2018-02-19 23:11 | NUR ---
PT OPEN EYES TO TOUCH, VITAL SIGNS STABLE, TEMP-99.4, 120 ML RESIDUAL NOTED, CONTINUE G-TUBE FEEDING, ORAL CARE DONE WITH VAP KIT, REPOSITIONED AND OFFLOAD PRESSURE AREAS, CONTINUE TO MONITOR CLOSELY.
[2018-02-20] VITALS: BP 138/52
[2018-02-20] MEDS: DEXTROSE 5% 1,000 ML IV SCH ×3 (00:56→10:18)
--- NOTE | 2018-02-20 03:20 | NUR ---
220 ML RESIDUAL NOTED, FEEDING HOLD PER PARAMETER, WILL RECHECKED RESIDUAL LATER, VITAL SIGNS STABLE, AFEBRILE, FLACC-0, ORAL CARE DONE WITH VAP KIT, SUCTION SECRETION PRN, IVF INFUSING WELL, MONITORED CLOSELY.
[2018-02-20 04:00] VITALS: BP 129/52
[2018-02-20] MEDS: PIPER/TAZO 3.375GM/D5W PREMIX 50 ML IV SCH ×3 (04:23→20:40)
[2018-02-20] MEDS: METOCLOPRAMIDE 10 MG/10 ML SYRP UDC GT SCH ×3 (04:24→20:40)
--- NOTE | 2018-02-20 05:20 | NUR ---
60ML RESIDUAL NOTED, RESUMED G-TUBE FEEDING, MAINTAIN HOB ELEVATED AT ALL TIMES, BM X2 WITH LARGE SLIGHTLY LOOSE STOOL, DUE MEDS ADMINISTERED, MONITORED CLOSELY.
[2018-02-20] MEDS: PANTOPRAZOLE 40 MG INJ VIAL IVP SCH (05:57)
[2018-02-20] MEDS: INSULIN LISPRO SLIDING SCALE 100 UNITS/ML VIAL SUBQ PRN ×4 (06:00→20:49)
--- NOTE | 2018-02-20 06:00 | NUR ---
BLOOD SUGAR CHECKED WITH 221 RESULT, COVERAGE GIVEN, DR FREDA CERNA HERE FOR NEPHRO CONSULT, UPDATED ON PT'S CONDITION, MADE AWARE OF CONTINUING EDEMA OF UPPER EXTREMITIES, STATED "IT'S DEPENDENT EDEMA, WILL WAIT FOR AM LAB RESULTS TO ADJUST FLUID INTAKE", WILL ENDORSE.
[2018-02-20 07:09] LABS: BASOPHILS # (AUTO) 0.2 K/uL (0.00-0.22); BASOPHILS % (AUTO) 2.1 % (0.0-2.0); EOSINOPHILS # (AUTO) 0.6 K/uL (0-0.4); EOSINOPHILS % (AUTO) 5.7 % (0.0-4.0); HEMATOCRIT 23.3 % (36-52); HEMOGLOBIN 7.5 g/dL (12.0-18.0); LYMPHOCYTES # (AUTO) 1.7 K/uL (2.0-11.5); MEAN CORPUSCULAR HEMOGLOBIN 28 pg (27-31); MEAN CORPUSCULAR HGB CONC 32 g/dL (33-37); MEAN CORPUSCULAR VOLUME 85.7 fL (80-94); MONOCYTES # (AUTO) 0.6 K/uL (0.8-1.0); MONOCYTES % (AUTO) 5.9 % (1.7-9.3); NEUTROPHILS # (AUTO) 7.1 K/uL (1.8-7.7); NEUTROPHILS % (AUTO) 69.3 % (42.2-75.2); PLATELET COUNT (AUTO) 320 K/uL (140-450); RED BLOOD CELL COUNT(AUTO) 2.71 MIL/uL (4.20-6.10); RED CELL DISTRIBUTION WIDTH 17.3 % (11.6-13.7); WHITE BLOOD COUNT (AUTO) 10.2 K/uL (4.8-10.8)
--- NOTE | 2018-02-20 07:10 | NUR ---
PT AWAKE, NO SIGNS OF DISTRESS, REPORT GIVEN TO SHEN SHANKAR FOR CONTINUITY OF CARE.
[2018-02-20] MEDS: BLOOD GLUCOSE MONITORING 1 DEV DEV FS SCH ×4 (07:14→20:38)
--- NOTE | 2018-02-20 07:15 | NUR ---
RECEIVED REPORT FROM WEAVING PROFESSOR RN. PATIENT IN STABLE CONDITION. TRACH TO VENT, FIO2 50%. UNABLE TO VERBALIZE MANY WORDS. FLACC 0. PATIENT IS ON TUBE FEEDING THROUGH G-TUBE PER MD ORDERS. DOUBLE LUMEN PICC ON RIGHT UPPER ARM, RUNNING IVF PER MD ORDERS. PATIENT HAS F/C. OPTIFOAM ON RIGHT HIP, RIGHT BUTTOCK, AND SACRUM FOR PRESSURE ULCERS. SEIZURE PRECAUTIONS ARE IN PLACE. LUNGS CTA IN ALL ESQUEDA. HEART RHYTHM REGULAR. ALL SAFETY MEASURES ARE IN PLACE. WILL CONTINUE TO MONITOR.
[2018-02-20 07:29] LABS: ANION GAP 9.6 (8-16); CARBON DIOXIDE 32.7 mmol/L (21-32); CHLORIDE 114 mmol/L (98-107); CREATININE 0.9 mg/dL (0.7-1.3); GLUCOSE 253 mg/dL (74-106); POTASSIUM 3.3 mmol/L (3.5-5.1); SODIUM SERUM 153 mmol/L (136-145); UREA NITROGEN, BLOOD 24 mg/dL (7-18)
[2018-02-20] MEDS: ALBUTEROL SULFATE/IPRATROPIU 3 ML SOL IH SCH ×3 (07:31→19:23)
[2018-02-20 07:35] LABS: PHOSPHORUS 3.5 mg/dL (2.5-4.9)
[2018-02-20 08:00] VITALS: BP 125/47
[2018-02-20] MEDS ORDERED: POTASSIUM CHLORIDE 10 MEQ TABER PO SCH (08:28)
[2018-02-20] MEDS: levETIRAcetam 100 MG/ML ORASYR GT SCH ×2 (08:44→20:39)
--- NOTE | 2018-02-20 08:44 | NUR ---
GASTRIC RESIDUAL IS 20 ML. SCHEDULED MEDICATIONS GIVEN VIA G-TUBE PER MD ORDERS. NO SIGNS OF DISTRESS. FLACC 0. WILL CONTINUE TO MONITOR.
[2018-02-20] MEDS: ZINC SULF 220 MG CAP GT SCH (08:45)
[2018-02-20] MEDS: VIT-B COMP/VIT-C/FOLIC ACID 1 TAB GT SCH (08:45)
[2018-02-20] MEDS: LACTOBACILLUS RHAMNOSUS GG 1 EACH CAP PO SCH (08:45)
[2018-02-20] MEDS: ASCORBIC ACID 500 MG/5 ML ORASYR GT SCH (08:45)
[2018-02-20] MEDS: METOPROLOL 50 MG TAB PO SCH ×2 (09:00→20:39)
[2018-02-20] MEDS: amLODIPine 5 MG TAB PO SCH ×2 (09:00→20:39)
[2018-02-20] MEDS ORDERED: HYDROCOLLOID DRESSING TP SCH (09:00)
--- NOTE | 2018-02-20 09:13 | NUR ---
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 PAST MEDICAL HISTORY INCLUDE COPD, RESPIRATORY FAILURE, DIABETES, HYPERTENSION AND ESRD. ALL ABOVE INFORMATION WAS OBTAINED FROM THE ADMISSION H&P. LABS ARE WBC 10.2, H/H 7.5/23.3, GLUCOSE 253, ALBUMIN 1.5. PATIENT IS AWAKE, ALERT, NON-VERBAL. SKIN WARM TO TOUCH WNL, THICKENED TOENAILS, +1 EDEMA, HAIR GROWTH AND BILATERAL PEDAL PULSES PRESENT. TAM CATHETER PATENT AND INTACT TO HANNAH COLORED URINE IN SMALL AMOUNT. NEEDS ASSISTANCE IN TURNING. PLAN OF CARE AND PRESSURE PREVENTIVE MEASURES DISCUSSED WITH PT AND PRIMARY NURSE. INTEGUMENTARY: -R/L EARS SCABS DRY AND CLEAN -RIGHT TROCHANTER PRESSURE INJURY STAGE 2, 2X2X0.1 CM, WOUND BED IS PINK, WOUND EDGE FLAT AND WELL DEFINED MOIST, NO ODOR, PERIWOUND PALE IN COLOR. RIGHT ISCHIUM PRESSURE INJURY STAGE 2, 4X2X0.1 CM, WOUND BED IS PINK AND MOIST, WOUND EDGE FLAT, NO ODOR, SURROUNDING REDNESS 4.5X2.5 INDICATED FURTHER DAMAGE. - SACRALCOCCYX PRESSURE INJURY UN-STAGEABLE 8X4 WITH WOUND BED 100% YELLOW SLOUGH WOUND EDGE IS FLAT, IRREGULAR WOUND SHAPE, SMALL AMOUNT OF PURULENT DRAINAGE, MILD ODOR, SURROUNDING REDNESS [id number] EXTENDED TO RIGHT AND LEFT BUTTOCK AND INDICATED FURTHER DAMAGE. - LEFT HEEL PRESSURE INJURY STAGE 1, 3X3 CM MUSHY TO TOUCH -STOMA RUBY SKIN INTACT TO TRACH AND GT SITES, NO REDNESS RECOMMENDATIONS: -DEBRIDEMENT TO SACRAL WOUND - CLEANSE RIGHT TROCHANTER AND RIGHT ISHIUM PRESSURE INJURY WITH NS. PAT DRY, APPLY HYDROCOLLOID DRESSING CHANGE Q72 HRS AND PRN IF SOILING. MONITOR DRESSING PLACEMENT QSHIFT -CLEANSE SACRAL PRESSURE INJURY WITH NS AND GAUZE, PAT DRY, APPLY THERAHONEY GEL, COVER WITH ADAPTIC AND DRY DRESSING SECURE WITH TAPE Q DAY AND PRN IF SOILING -PAINT SCABS TO R/L EARS WITH BETADINE BREANNE. AND LEAVE IT OPEN TO AIR BIDWC -APPLY SKIN PREP TO LEFT HEEL PRESSURE INJURY BIDWC AND LEAVE IT OPEN TO AIR -TURN AND REPOSITION PATIENT Q2H TO LEFT AND RIGHT SIDE ONLY TO OFFLOAD SACRALCOCCYX, RIGHT HIP AND RIGHT ISCHIUM -ASSESS AND MONITOR SKIN CONDITION DURING POSITION CHANGE, PLEASE PAY ATTENTION TO SACRALCOCCYX, RIGHT HIP AND RIGHT ISCHIUM -OFFLOAD BILATERAL HEELS BY PLACING PILLOWS UNDER CALVES AT ALL TIMES, UNLESS OTHERWISE CONTRAINDICATED -HEEL RAISER TO LEFT HEEL AT ALL TIMES -PRESSURE REDISTRIBUTION SURFACE THERAPY -KEEP SKIN CLEAN AND DRY AT ALL TIMES. -APPLY BODY LOTION TO DRY SKIN AREAS QD COMORBIDITIES RELATED TO SKIN BREAKS: -LOW ALBUMIN LEVEL -DM -IMPAIRED OF MOBILITY -COGNITIVE IMPAIRMENT -CHRONIC BOWEL INCONTINENT -HOB ELEVATED THE MAJORITY OF THE DAY FOR MEDICAL CONDITION RECOMMENDATIONS DISCUSSED WITH PRIMARY RN WILL FOLLOW UP PATIENT Q 7 -10 DAYS AND PRN. PLEASE CONTACT WOUND CARE NURSE FOR ANY QUESTION OR CHANGES IN WOUND CONDITION
[2018-02-20] MEDS: THERAHONEY GEL 42.5 GM TP SCH (10:26)
[2018-02-20] MEDS: KCL 20 MEQ/WATER INJ PREMIX 200 ML IV SCH ×2 (10:47→11:54)
--- NOTE | 2018-02-20 11:54 | NUR ---
SECOND BAG OF SCHEDULED POTASSIUM CHLORIDE IV ADMINISTERED PER MD ORDERS. ALL SAFETY MEASURES IN PLACE, WILL CONTINUE TO MONITOR.
[2018-02-20] MEDS: INSULIN NPH HUMAN ISOPHANE 100 UNIT/ML VIAL SUBQ SCH ×2 (11:55→20:52)
[2018-02-20 12:00] VITALS: BP 130/50
--- NOTE | 2018-02-20 13:56 | NUR ---
RECEIVED ON A [employer] R860 VENTILATOR WITH COMPRESSOR ON PLUGGED INTO RED OUTLET TOLERATING WELL TO A MARISEL DFEN #6 AIRWAY SECURED WITH A ADELFO TRACH TIE CUFF PRESSURE CHECKED NOTED AMBU BAG NOTED AT HOB LOC AWAKE BREATH SOUNDS RHONCHI BILATERAL WITH GOOD CHEST RISE DEEP TRACHEAL SUCTION FOR MODERATE THICK YELLOW SECRETIONS AIRWAY PATENT
--- NOTE | 2018-02-20 14:22 | NUR ---
PATIENT IS RESTING IN BED, AROUSABLE BY VOICE. NO SIGNS OR SYMPTOMS OF DISTRESS. FLACC 0. ALL SAFETY MEASURES IN PLACE, WILL CONTINUE TO MONITOR.
--- NOTE | 2018-02-20 15:00 | NUR ---
VENTILATOR AND PATIENT CHECK TRIAGED DUE TO INCREASED ACTIVITY IN THE EMERGENCY DEPARTMENT
[2018-02-20 16:00] VITALS: BP 141/55
--- NOTE | 2018-02-20 16:50 | NUR ---
BLOOD SUGAR IS 264. WILL ADMINISTER HUMALOG PER MD ORDERS. NO SIGNS OF DISTRESS. WILL CONTINUE TO MONITOR PATIENT.
[2018-02-20] MEDS ORDERED: FERROUS SULFATE 325 MG TABEC PO SCH (17:00)
--- NOTE | 2018-02-20 17:12 | NUR ---
AWAKE STABLE NO EVIDENCE OF RESPIRATORY DISTRESS NOTED AT THIS TIME BREATH SOUNDS RALE BILATEAL WITH GOOD CHEST RISE DEEP TRACHEAL SUCTION FOR SMALL THIN YELLOW WITH BLODD TINGE SECRETIONS AIRWAY PATENT
[2018-02-20] MEDS: HYDROCOLLOID DRESSING TP SCH (17:58)
[2018-02-20] MEDS: FERROUS SULFATE 300 MG/5 ML UDC GT SCH (17:59)
--- NOTE | 2018-02-20 18:05 | NUR ---
GASTRIC RESIDUAL IS 200 ML. WILL HOLD TUBE FEEDING FOR ONE HOUR AND RE-CHECK. WILL CONTINUE TO MONITOR PATIENT.
--- NOTE | 2018-02-20 19:28 | NUR ---
ENDORSED PLAN OF CARE TO LOCAL INTERMODAL TRUCK DRIVER RN. PATIENT IS IN STABLE CONDITION.
--- NOTE | 2018-02-20 19:30 | NUR ---
RECEIVED REPORT FROM [facility] NURSE SHANKAR AT BEDSIDE FOR CONTINUITY OF CARE. PT AAOX1-NAME ONLY LOOKS AT YOU. PT APHASIC AND HAS VENT TO TRACH PT FIO2 35% O2 SAT 100%. IV NOTED PICC LINE FARHAN D5 80ML/HR. PT HAS G-TUBE FEEDING. TAM IN PLACE. SO SOB NO S/S OF DISTRESS. BED LOWERED CALL LIGHT WITHIN REACH WILL CONTINUE TO MONITOR.
--- NOTE | 2018-02-20 19:34 | NUR ---
RECEIVED PT STABLE ON VENT SUPPORT AT DOCUMENTED SETTINGS, SUCTIONED SCANT AMOUNTS OF YELLOW BLOOD TINGED SECRETIONS, HHN TX GIVEN, TOLERATED WELL, NO RESP DISTRESS OR SOB NOTED AT THIS TIME, 6 SHILEY TRACH SECURED/PATENT/MIDLINE, ALARMS SET AND AUDIBLE, AMBU BAG AT [facility], VENT PLUGGED INTO RED OUTLET, WILL CONT TO MONITOR.
[2018-02-20 20:00] VITALS: BP 118/42
--- NOTE | 2018-02-20 20:30 | NUR ---
RESIDUAL 65ML. WILL HOLD FEEDING FOR 1 HR AND RECHECK.
[2018-02-20] MEDS: ATORVASTATIN 20 MG TAB GT SCH (20:39)
--- NOTE | 2018-02-20 22:30 | NUR ---
RECHECKED RESIDUAL UNDER <50ML/HR RESTARTED TUBE FEEDINGS.
--- NOTE | 2018-02-20 23:47 | NUR ---
CALLED DAUGHTER RORY FOR CONSENT ON BEDSIDE DEBRIDEMENT SACRAL COCCYX. WILL ENDORSE TO MORNING NURSE.
[2018-02-21] VITALS: BP 116/48
--- NOTE | 2018-02-21 02:15 | NUR ---
PT WAS UNEASY SPOKE TO PATIENT IN [place] AND I ASKED IF HE WAS IN PAIN TO BLINK. HE BLINKED SO I MEDICATED HIM. ALSO CHECKED RESIDUAL FROM TUBE FEEDING AND IT WAS AT 75ML. CONTINUED FEEDING.
--- NOTE | 2018-02-21 02:39 | NUR ---
CALLED RT. TO DO SUCTIONING. I ASKED PT IF THEY FELT CLOGGED OR MUCUS BECAUSE HIGH PRESSURE ALARM WOUND GO OFF. PT BLINKED EYES FOR YES. PER RT HAD A LITTLE MUCUS. WILL CONTINUE TO MONITOR.
[2018-02-21] MEDS ORDERED: LORazepam 2 MG/ML VIAL ONE (02:45)
[2018-02-21 04:00] VITALS: BP 119/50
[2018-02-21] MEDS: PIPER/TAZO 3.375GM/D5W PREMIX 50 ML IV SCH ×3 (04:55→20:21)
[2018-02-21] MEDS: METOCLOPRAMIDE 10 MG/10 ML SYRP UDC GT SCH ×3 (04:55→20:20)
[2018-02-21] MEDS: LORazepam 2 MG/ML VIAL IM/IVP PRN ×2 (04:56→21:52)
[2018-02-21] MEDS: PANTOPRAZOLE 40 MG INJ VIAL IVP SCH (05:47)
--- NOTE | 2018-02-21 06:00 | NUR ---
REASSESSED ADIVAN ADMINISTRATION. PT SEEMS LESS AGITATED. WILL CONTINUE TO MONITOR.
[2018-02-21] MEDS: INSULIN LISPRO SLIDING SCALE 100 UNITS/ML VIAL SUBQ PRN ×4 (06:01→20:25)
[2018-02-21] MEDS: BLOOD GLUCOSE MONITORING 1 DEV DEV FS SCH ×4 (06:22→20:20)
[2018-02-21] MEDS: ALBUTEROL SULFATE/IPRATROPIU 3 ML SOL IH SCH ×3 (06:45→18:54)
--- NOTE | 2018-02-21 06:45 | NUR ---
REC'D PT ON CARESCAPE VENT SETTINGS AC12 VT 500 PEEP 5 FIO2 35% ALARMS ON AND FUNCTIONING PROPERLY, AMBU BAG AT SIDE OF VENT AND VENT IS PLUGGED INTO RED OUTLET, I\E TX GIVEN WITH DUONEB 3ML WITH NO ADVERSE REACTION POST TX B\S RHONCHI BILATERALLY, SXN PT SMALL AMT OF YELLOW SECRETIONS, PT IS TRACH WITH SHILEY 6 FEN AND SKIN INTEGRITY IS INTACT PT IS RESTING
[2018-02-21 06:59] LABS: BASOPHILS # (AUTO) 0.1 K/uL (0.00-0.22); BASOPHILS % (AUTO) 0.8 % (0.0-2.0); EOSINOPHILS # (AUTO) 0.7 K/uL (0-0.4); EOSINOPHILS % (AUTO) 6.5 % (0.0-4.0); HEMATOCRIT 23.1 % (36-52); HEMOGLOBIN 7.5 g/dL (12.0-18.0); LYMPHOCYTES # (AUTO) 2.1 K/uL (2.0-11.5); LYMPHOCYTES % (AUTO) 20.1 % (20.5-51.1); MEAN CORPUSCULAR HEMOGLOBIN 28 pg (27-31); MEAN CORPUSCULAR HGB CONC 32 g/dL (33-37); MEAN CORPUSCULAR VOLUME 85.9 fL (80-94); MONOCYTES # (AUTO) 0.6 K/uL (0.8-1.0); NEUTROPHILS % (AUTO) 66.6 % (42.2-75.2); PLATELET COUNT (AUTO) 322 K/uL (140-450); RED BLOOD CELL COUNT(AUTO) 2.69 MIL/uL (4.20-6.10); RED CELL DISTRIBUTION WIDTH 17.1 % (11.6-13.7); WHITE BLOOD COUNT (AUTO) 10.5 K/uL (4.8-10.8)
[2018-02-21 07:12] LABS: ANION GAP 9.8 (8-16); CARBON DIOXIDE 30.8 mmol/L (21-32); CHLORIDE 110 mmol/L (98-107); CREATININE 0.9 mg/dL (0.7-1.3); GLUCOSE 199 mg/dL (74-106); POTASSIUM 3.6 mmol/L (3.5-5.1); SODIUM SERUM 147 mmol/L (136-145); UREA NITROGEN, BLOOD 17 mg/dL (7-18)
[2018-02-21 07:26] LABS: MAGNESIUM 1.8 mg/dL (1.8-2.4)
--- NOTE | 2018-02-21 07:30 | NUR ---
RECEIVED REPORT FROM BILINGUAL RECRUITER RN AT BEDSIDE, PT AAOX1, NONVERBAL, ABLE TO FOLLOW COMMANDS AND MAKE NEEDS KNOWN, TRACH TO VENT WITH SETTING FIO2 35, VT 500, R 12, PEEP 5, NO S/S OF DISTRESS, CLEAR LUNG SOUNDS LINDA., O2 SAT 95%, SR ON TELE MONITOR, BUE PITTING +2 EDEMA NOTED, SOFT ROUND ABDOMEN WITH ACTIVE BOWEL SOUNDS, GT IN PLACE WITH FEEDING JEVITY AT 75ML/HR, RESIDUALS 30ML NOTED, INCONTINENT WITH B&B'S, F/C IN PLACE DRAINING CLEAR HANNAH URINE VIA GRAVITY, SEVERE WEAKNESS NOTED TO ALL EXTREMITIES, SKIN IS WARM AND DRY TO TOUCH, OPEN WOUND PRESENT (SEE WOUND ASSESSMENT) PICC LINE TO RIGHT UPPER ARM, PATENT, RUNNING D5 AT 50ML/HR . VSS, FLACC 0, HOB ELEVATED TO 30 DEGREES, SAFETY MEASURES AND SEIZURE PRECAUTION IN PLACE, WILL CONTINUE TO MONITOR.
--- NOTE | 2018-02-21 07:31 | NUR ---
ENDORSED REPORT TO DAYSHIFT NURSE AT BEDSIDE FOR CONTINUITY OF CARE.
[2018-02-21] MEDS: DEXTROSE 5% 1,000 ML IV SCH ×2 (07:48→16:20)
[2018-02-21 08:00] VITALS: BP 116/52
[2018-02-21] MEDS: levETIRAcetam 100 MG/ML ORASYR GT SCH ×2 (08:39→20:20)
[2018-02-21] MEDS: amLODIPine 5 MG TAB PO SCH ×2 (08:39→20:21)
[2018-02-21] MEDS: VIT-B COMP/VIT-C/FOLIC ACID 1 TAB GT SCH (08:39)
[2018-02-21] MEDS: ZINC SULF 220 MG CAP GT SCH (08:39)
[2018-02-21] MEDS: METOPROLOL 50 MG TAB PO SCH ×2 (08:39→20:21)
[2018-02-21] MEDS: LACTOBACILLUS RHAMNOSUS GG 1 EACH CAP PO SCH (08:39)
[2018-02-21] MEDS: FERROUS SULFATE 300 MG/5 ML UDC GT SCH ×2 (08:39→16:12)
[2018-02-21] MEDS: INSULIN NPH HUMAN ISOPHANE 100 UNIT/ML VIAL SUBQ SCH ×2 (08:41→20:25)
[2018-02-21] MEDS: THERAHONEY GEL 42.5 GM TP SCH (08:42)
[2018-02-21] MEDS ORDERED: ASCORBIC ACID 500 MG TAB PO SCH (09:00)
--- NOTE | 2018-02-21 09:06 | NUR ---
VENT CHECK, PT IS RESTING WITH NO SIGNS OF DISTRESS NOTED AT THIS TIME
--- NOTE | 2018-02-21 09:30 | NUR ---
SCHEDULED MEDICATION GIVEN VIA GT, PT TOLERATED WELL.
[2018-02-21] MEDS: ASCORBIC ACID 500 MG/5 ML ORASYR GT SCH (10:05)
--- NOTE | 2018-02-21 11:00 | NUR ---
Telecommunications Administrator Notes: I called [facility] spoke to Serenity to discuss and gather Patient's information. Per Serenity patient has been in the facility for about a month and is currently on a 7 days skilled care bed hold. Per [facility] patient is able to return to their facility when he is ready and clear for discharge. I asked for more information in regards to medications and equipment and Serenity transfer me to Patient's RN Yasmeen. Per RN Patient is very compliant with medications and has no issues getting or taking his medications. Patient is a trached to ventilation care and do not have other special equipment, Patient no longer uses his wheelchair. RN also stated that Patient's do not have a POLTS or an advance directive however healthcare decision, makers are daughter Demetra and son Antione Corea. I thanked RN for the information and I ended the call.
--- NOTE | 2018-02-21 11:15 | NUR ---
VENT CHECK, SXN LARGE AMT OF YELLOW SECRETIONS, B\S ARE RHONCHI AND PT IS RESTING
[2018-02-21 12:00] VITALS: BP 124/53
--- NOTE | 2018-02-21 12:00 | NUR ---
PT IS RESTING IN BED, VSS, FLACC 0, NO S/S OF DISTRESS, ORAL CARE PROVIDED, WOUND CARE DRESSING DONE, POSITION CHANGED FOR OFF LOAD PRESSURE.
--- NOTE | 2018-02-21 12:49 | NUR ---
vent check, no sxn needed at this time airway is patent and pt is sleeping with no signs of distress no hhn given at this time
--- NOTE | 2018-02-21 15:19 | NUR ---
vent check, pt having ultra sound done airway is patent
--- NOTE | 2018-02-21 15:47 | NUR ---
02/21/18 RD FOLLOW UP COMPLETED PLEASE REFER TO NUTRITION ASSESSMENT UNDER CARE ACTIVITY FOR ESTIMATED NUTRITIONAL NEEDS. 1. RECOMMEND SWITCHING FORMULA TO GLUCERNA 75 ML/HR -THIS WILL PROVIDE 1800 ML, 2160 KCAL, AND 108 GM PROTEIN, MEETING 79% OF ESTIMATED KCAL AND 78% OF ESTIMATED PROTEIN NEEDS. 2. RD TO FOLLOW-UP 2-3 DAYS, HIGH RISK MARIELA LUGO, RD
[2018-02-21 16:00] VITALS: BP 118/52
--- NOTE | 2018-02-21 16:10 | NUR ---
US DONE AT BEDSIDE
--- NOTE | 2018-02-21 16:27 | NUR ---
vent check, sxn pt large amt of yellow secretions, trach care done: changed trach tie and gauze pt is resting getting cleaned
--- NOTE | 2018-02-21 19:10 | NUR ---
REPORT GIVEN TO PHOTOGRAPHIC COLORIST NURSE FOR CONTINUE OF CARE, PT IS IN STABLE CONDITION AT THIS TIME.
--- NOTE | 2018-02-21 19:15 | NUR ---
RECEIVED REPORT FROM DAYSHIFT NURSE AT BEDSIDE FOR CONTINUITY OF CARE. PT AAO X1.PT APHASIC BUT UNDERSTANDS CROATIAN AND BLINKS TO YES ANSWERS. PT TRACH TO VENT NO SOB NO S/S OF DISTRESS. PT HAS TAM IN PLACE. ON A OFF PRESSURE THERAPEUTIC MATTRESS. FEEDING IS NOT ON WAITING FOR FORMULA. PT IV IS FARHAN PICC LINE D5 50 ML/HR. BED LOWERED CALL LIGHT WITHIN REACH WILL CONTINUE TO MONITOR.
[2018-02-21 20:00] VITALS: BP 129/46
[2018-02-21] MEDS: ATORVASTATIN 20 MG TAB GT SCH (20:20)
--- NOTE | 2018-02-21 22:20 | NUR ---
STARTED G-TUB FEEDING LUCERNA 1.2 AT 35ML/HR AND WILL INCREASE 10ML Q4HR.
--- NOTE | 2018-02-21 22:53 | NUR ---
GAVE PT ADIVAN 1HR AGO. PT IS SLEEPING. ADIVAN HAS HELPED WITH ANXIETY OF VENT.
[2018-02-22] VITALS: BP 130/52
--- NOTE | 2018-02-22 00:53 | NUR ---
PT SLEEPING NO SOB NO S/S OF DISTRESS WILL CONTINUE TO MONITOR.
--- NOTE | 2018-02-22 02:50 | NUR ---
FEEDING: PT TOLERATED FEEDING. RESIDUAL 15ML. WILL INCREASE FEEDING TO 45ML/HR AND 200 Q3HR. WILL REASSESS IN 4HR. WILL CONTINUE TO MONITOR.
[2018-02-22 04:00] VITALS: BP 137/61
[2018-02-22] MEDS: METOCLOPRAMIDE 10 MG/10 ML SYRP UDC GT SCH ×3 (04:27→20:24)
[2018-02-22] MEDS: PIPER/TAZO 3.375GM/D5W PREMIX 50 ML IV SCH (04:28)
--- NOTE | 2018-02-22 04:39 | NUR ---
CHANGED BANDAGE ON SACRAL WOUND. HYDROCOLLOID DRESSING.
[2018-02-22] MEDS: PANTOPRAZOLE 40 MG INJ VIAL IVP SCH (05:45)
[2018-02-22] MEDS: BLOOD GLUCOSE MONITORING 1 DEV DEV FS SCH ×4 (06:21→20:40)
--- NOTE | 2018-02-22 06:23 | NUR ---
GTUBE FEEDING INCREASED TO 55ML/HR (RESIDUAL WAS 50ML). RECHECK Q4HR AND INCREASE BY 10ML/ Q4HR. TILL REACHES GOAL OF 75ML/HR.
[2018-02-22 06:24] LABS: BASOPHILS # (AUTO) 0.1 K/uL (0.00-0.22); BASOPHILS % (AUTO) 0.8 % (0.0-2.0); EOSINOPHILS # (AUTO) 0.5 K/uL (0-0.4); EOSINOPHILS % (AUTO) 4.9 % (0.0-4.0); HEMATOCRIT 22.4 % (36-52); HEMOGLOBIN 7.3 g/dL (12.0-18.0); LYMPHOCYTES # (AUTO) 2.2 K/uL (2.0-11.5); MEAN CORPUSCULAR HEMOGLOBIN 28 pg (27-31); MEAN CORPUSCULAR HGB CONC 33 g/dL (33-37); MEAN CORPUSCULAR VOLUME 86.4 fL (80-94); MONOCYTES # (AUTO) 0.6 K/uL (0.8-1.0); NEUTROPHILS # (AUTO) 6.6 K/uL (1.8-7.7); NEUTROPHILS % (AUTO) 66.3 % (42.2-75.2); PLATELET COUNT (AUTO) 310 K/uL (140-450); RED CELL DISTRIBUTION WIDTH 17.4 % (11.6-13.7); WHITE BLOOD COUNT (AUTO) 9.9 K/uL (4.8-10.8)
[2018-02-22 06:59] LABS: ANION GAP 9.3 (8-16); CARBON DIOXIDE 28.1 mmol/L (21-32); CHLORIDE 107 mmol/L (98-107); CREATININE 0.9 mg/dL (0.7-1.3); GLUCOSE 151 mg/dL (74-106); POTASSIUM 3.4 mmol/L (3.5-5.1); SODIUM SERUM 141 mmol/L (136-145); UREA NITROGEN, BLOOD 16 mg/dL (7-18)
[2018-02-22] MEDS: ALBUTEROL SULFATE/IPRATROPIU 3 ML SOL IH SCH ×3 (06:59→18:46)
--- NOTE | 2018-02-22 06:59 | NUR ---
RECEIVED PT ON CARESCAPE ON DOCUMENTED SETTINGS ALARMS ARE 0N AND AUDIBLE PTS TRACH SHILEY FEN SIZE 6 IS SECURE PT IN HF QUIET HHN GVIEN I\L WITH 3 MG DUONEB CONT POX AT BEDSIDE VENT PLUGGED INTO RED OUTLET
[2018-02-22 07:13] LABS: MAGNESIUM 1.7 mg/dL (1.8-2.4); PHOSPHORUS 3.3 mg/dL (2.5-4.9)
--- NOTE | 2018-02-22 07:30 | NUR ---
ENDORSED REPORT TO DAYSHIFT NURSE AT BEDSIDE FOR CONTINUITY OF CARE.
--- NOTE | 2018-02-22 07:35 | NUR ---
RECEIVED REPORT FROM RACING DRIVER RN. PATIENT IS ON TRACH TO VENT. FI02 35. CONTACT PRECAUTIONS FOR MRSA OF WOUND. PRESSURE ULCER ON RIGHT HIP, RIGHT BUTTOCK, AND SACRUM. HYDROCOLLOID DRESSING ON RIGHT HIP AND SACRUM. PRESSURE AREAS OFFLOADED. TUBE FEEDING WITH GLUCERNA 1.2 THROUGH G-TUBE. LUNG SOUNDS CLEAR/SLIGHTLY COARSE IN ALL ESQUEDA. HEART RHYTHM IS REGULAR. ABDOMEN IS ROUND. PITTING EDEMA IN BILATERAL UPPER EXTREMITIES. PITTING EDEMA IN BILATERAL FEET. EXTREMITIES ARE ELEVATED. RIGHT UA DOUBLE LUMEN PICC PATENT AND RUNNING IVF PER MD ORDERS. F/C IN PLACE. ALL SAFETY MEASURES IN PLACE. WILL CONTINUE TO MONITOR.
[2018-02-22] MEDS ORDERED: MAG SULF 2000 MG/WATER PREMIX 50 ML IV ONE (07:55)
[2018-02-22 08:00] VITALS: BP 110/45
[2018-02-22] MEDS ORDERED: POTASSIUM CHLORIDE 20% 40 MEQ/15 ML UDC GT SCH (09:00)
[2018-02-22] MEDS: amLODIPine 5 MG TAB PO SCH ×2 (09:00→20:25)
[2018-02-22] MEDS: METOPROLOL 50 MG TAB PO SCH ×2 (09:00→20:25)
[2018-02-22] MEDS: ASCORBIC ACID 500 MG/5 ML ORASYR GT SCH (09:14)
[2018-02-22] MEDS: FERROUS SULFATE 300 MG/5 ML UDC GT SCH ×2 (09:15→17:01)
[2018-02-22] MEDS: levETIRAcetam 100 MG/ML ORASYR GT SCH ×2 (09:15→20:24)
--- NOTE | 2018-02-22 09:15 | NUR ---
SCHEDULED MEDICATIONS GIVEN AT THIS TIME PER MD ORDERS. NO DISTRESS NOTED. FLACC 0. WILL CONTINUE TO MONITOR PATIENT.
[2018-02-22] MEDS: ZINC SULF 220 MG CAP GT SCH (09:16)
[2018-02-22] MEDS: VIT-B COMP/VIT-C/FOLIC ACID 1 TAB GT SCH (09:16)
[2018-02-22] MEDS: LACTOBACILLUS RHAMNOSUS GG 1 EACH CAP PO SCH (09:16)
[2018-02-22] MEDS ORDERED: DEXT 5% / NACL 0.45% 1,000 ML IV SCH (09:30)
[2018-02-22] MEDS: THERAHONEY GEL 42.5 GM TP SCH (10:00)
[2018-02-22] MEDS: INSULIN NPH HUMAN ISOPHANE 100 UNIT/ML VIAL SUBQ SCH ×2 (10:06→20:32)
[2018-02-22 12:00] VITALS: BP 118/48
--- NOTE | 2018-02-22 12:04 | NUR ---
PICC LINE NURSE, SHANNA CALLED VIA PHONE AND ANSWERED ALL HER QUESTIONS REGARDING PATIENT. PICC LINE CONSENT SIGNED BY SON AT BEDSIDE AND MD SIGNED CONSENT. PICC LINE NURSE CONCERNED ABOUT OLD PICC LINE AND ASKED IF WE COULD GET AN US ON IT TO R/O DVT, NOTIFIED MD AND MD SAID HE WILL PLACE THE ORDERS IN. SAFETY MEASURES IN PLACE. SHANNA'S ESTIMATED TIME OF ARRIVAL IS WITHIN 1.5 HOURS PER SHANNA REPORTS. SAFETY MEASURES IN PLACE, CALL LIGHT WITHIN REACH. WILL CONTINUE TO MONITOR.
--- NOTE | 2018-02-22 13:00 | NUR ---
DR. JAY AT BEDSIDE TO PERFORM BEDSIDE WOUND DEBRIDEMENT ON SACRAL ULCER. WILL CONTINUE TO MONITOR.
[2018-02-22] MEDS: HYDROCOLLOID DRESSING TP SCH ×2 (15:30→17:01)
[2018-02-22 16:00] VITALS: BP 150/55
--- NOTE | 2018-02-22 16:00 | NUR ---
PICC LINE NURSE SHANNA COMPLETED INSERTION OF NEW MIDLINE CATHETER ON LEFT ARM. UNABLE TO INSERT PICC LINE PER SHANNA REPORTS. SAFETY MEASURES IN PLACE, CALL LIGHT WITHIN REACH. WILL CONTINUE TO MONITOR.
--- NOTE | 2018-02-22 16:40 | NUR ---
RIGHT MIDLINE CATHETER REMOVED WITH LUMEN COMPLETELY INTACT, 23 CM OF MIDLINE CATHETER REMOVED. PRESSURE DRESSING APPLIED WITH MINIMAL BLEEDING ON SITE. SAFETY MEASURES IN PLACE, CALL LIGHT WITHIN REACH. WILL CONTINUE TO MONITOR.
[2018-02-22] MEDS: MAGNESIUM SULFATE 1GM in DEXTROSE 5% 100 ML PREMIX IV SCH ×2 (17:01→18:53)
--- NOTE | 2018-02-22 17:19 | NUR ---
ASSISTED DATABASE ADMINISTRATION ASSOCIATE IN CLEANING AND REPOSITIONING PATIENT. SCHEDULED MEDICATIONS DUE GIVEN. FIRST MAGNESIUM BAG STARTED AT THIS TIME DUE TO RIGHT MIDLINE CATHETER INFILTRATED IN THE MORNING. WILL CONTINUE TO MONITOR
--- NOTE | 2018-02-22 19:08 | NUR ---
ENDORSED PLAN OF CARE TO WARE FINISHER RN. PATIENT IS IN STABLE CONDITION.
--- NOTE | 2018-02-22 19:10 | NUR ---
RECEIVED PT AWAKE WITH TRACKING, APHASIC, ON TRACH TO VENT, SAT-95% ON 35% FI02, NO SIGNS OF RESP DISTRESS, FLACC-0, MAG-RIDER INFUSING WELL VIA LEFT UA PICC LINE, WITH G-TUBE FEEDING ON-GOING, HOB ELEVATED AT ALL TIMES, TAM CATHETER INTACT DRAINING YELLOW URINE, ON CONTACT ISOLATION, REPOSITION Q2H AND OFFLOAD PRESSURE AREAS, SAFETY MEASURES IN PLACE.
[2018-02-22 20:00] VITALS: BP 118/56
[2018-02-22] MEDS: ATORVASTATIN 20 MG TAB GT SCH (20:24)
--- NOTE | 2018-02-22 20:35 | NUR ---
BLOOD SUGAR CHECKED WITH 99 RESULT, CALLED RESIDENT ON DUTY AND SPOKE TO DR WATSON AND DR CHOWDHURY, STATED TO HOLD DUE HUMULIN N 60 UNITS FOR NOW AND TO RECHECKED BLOOD SUGAR AT 2200, 80ML G-TUBE RESIDUAL NOTED, DUE MEDS ADMINISTERED, NEEDS ATTENDED, CONTINUE TO REPOSITION Q2H AND OFFLOAD PRESSURE AREAS.
[2018-02-22] MEDS ORDERED: BLOOD GLUCOSE MONITORING 1 DEV DEV FS SCH (21:00)
[2018-02-22] MEDS ORDERED: BLOOD GLUCOSE MONITORING 1 DEV DEV FS ONE (23:00)
[2018-02-23] VITALS: BP 120/55
--- NOTE | 2018-02-23 00:54 | NUR ---
50ML G-TUBE RESIDUAL NOTED, NEW FEEDING CONTAINER STARTED AT 75ML/H WITH FREE WATER FLUSH OF 200ML Q3H, MAINTAIN HOB ELEVATED AT ALL TIMES, MONITORED CLOSELY.
--- NOTE | 2018-02-23 03:30 | NUR ---
BLOOD SUGAR CHECKED WITH 121 RESULT, DR WATSON MADE AWARE, VITAL SIGNS STABLE, AFEBRILE, ORAL CARE DONE USING VAP KIT, MONITORED CLOSELY.
[2018-02-23 04:00] VITALS: BP 121/56
[2018-02-23] MEDS: METOCLOPRAMIDE 10 MG/10 ML SYRP UDC GT SCH ×3 (04:53→20:57)
--- NOTE | 2018-02-23 05:00 | NUR ---
60 ML RESIDUAL NOTED, DUE MEDICATION ADMINISTERED, BM WITH MODERATE LOOSE STOOL, PRESSURE ULCER DRESSING DRY AND INTACT, MONITORED CLOSELY.
[2018-02-23] MEDS: PANTOPRAZOLE 40 MG INJ VIAL IVP SCH (05:50)
[2018-02-23] MEDS: BLOOD GLUCOSE MONITORING 1 DEV DEV FS SCH ×4 (06:42→20:56)
[2018-02-23 06:50] LABS: BASOPHILS % (AUTO) 0.3 % (0.0-2.0); EOSINOPHILS # (AUTO) 0.4 K/uL (0-0.4); EOSINOPHILS % (AUTO) 3.6 % (0.0-4.0); HEMATOCRIT 21.7 % (36-52); HEMOGLOBIN 7.2 g/dL (12.0-18.0); LYMPHOCYTES # (AUTO) 1.8 K/uL (2.0-11.5); LYMPHOCYTES % (AUTO) 16.9 % (20.5-51.1); MEAN CORPUSCULAR HEMOGLOBIN 28 pg (27-31); MEAN CORPUSCULAR HGB CONC 33 g/dL (33-37); MEAN CORPUSCULAR VOLUME 84.3 fL (80-94); MONOCYTES # (AUTO) 0.6 K/uL (0.8-1.0); MONOCYTES % (AUTO) 6.2 % (1.7-9.3); NEUTROPHILS # (AUTO) 7.7 K/uL (1.8-7.7); PLATELET COUNT (AUTO) 294 K/uL (140-450); RED BLOOD CELL COUNT(AUTO) 2.58 MIL/uL (4.20-6.10); RED CELL DISTRIBUTION WIDTH 17.2 % (11.6-13.7); WHITE BLOOD COUNT (AUTO) 10.5 K/uL (4.8-10.8)
[2018-02-23 07:01] LABS: ANION GAP 10.4 (8-16); CHLORIDE 107 mmol/L (98-107); CREATININE 0.7 mg/dL (0.7-1.3); GLUCOSE 146 mg/dL (74-106); POTASSIUM 3.4 mmol/L (3.5-5.1); SODIUM SERUM 142 mmol/L (136-145); UREA NITROGEN, BLOOD 14 mg/dL (7-18)
--- NOTE | 2018-02-23 07:08 | NUR ---
PT SLEEPING, NO SIGNS OF DISTRESS, REPORT GIVEN TO SHEN SHANKAR FOR CONTINUITY OF CARE.
--- NOTE | 2018-02-23 07:09 | NUR ---
RECEIVED REPORT FROM ELECTRICIAN ASSISTANT NURSE. PATIENT LYING DOWN IN BED SLEEPING, AROUSABLE BY VOICE. NO DISTRESS NOTED. RESPIRATIONS EVEN, ON VENT TO TRACH WITH VENT SETTINGS AT FIO2:35%, VT:500, RR:12, PEEP:5 WITH O2 SAT AT 98%. AAOX1, APHASIC, CALM, SKIN COLOR APPROPRIATE TO ETHNICITY, WARM TO TOUCH. HAS RIGHT HIP AND SACRAL COCCYX PRESSURE ULCERS, DRESSING DRY AND INTACT. RIGHT INNER EAR HAS PRESSURE WOUND WELL. TAM CATHETER IN PLACE, DRAINING CLEAR YELLOW URINE. LEFT UPPER ARM MIDLINE IN PLACE, NO INFILTRATION NOTED. HAS B/L UE AND LE PITTING EDEMA NOTED. REVIEWED PLAN OF CARE WITH PATIENT. REINFORCEMENT NEEDED. SAFETY MEASURES IN PLACE, CALL LIGHT WITHIN REACH. WILL CONTINUE TO MONITOR.
[2018-02-23 07:10] LABS: MAGNESIUM 1.9 mg/dL (1.8-2.4); PHOSPHORUS 3.2 mg/dL (2.5-4.9)
[2018-02-23] MEDS: ALBUTEROL SULFATE/IPRATROPIU 3 ML SOL IH SCH ×3 (07:13→19:47)
--- NOTE | 2018-02-23 07:13 | NUR ---
RECEIVED ON A Art CircleSCAPE R860 VENTILATOR PLUGGED INTO RED OUTLET TOLARATING WELL WITHOUT INCIDENT TO A MARISEL CORTÉSEN #6 AIRWAY SECURED WITH A ADELFO STEPHANIE MATTHEWS CUALEXANDRA PRESSURE CHECKED NOTED AMBU BAG NOTED AT BEDSIDE ASLEEP RESTING COMFORTABLY NO APPARENT PULMONARY DISTRESS NOTED BREATH SOUNDS COARSE RHONCHI BILATERAL DEEP TRACHEAL SUCTION FOR LARGE THICK YELLOW SECRETIONS AIRWAY PATENT
[2018-02-23 08:00] VITALS: BP 148/55
[2018-02-23] MEDS ORDERED: POTASSIUM CHLORIDE 20% 40 MEQ/15 ML UDC GT SCH (08:00)
[2018-02-23] MEDS: FERROUS SULFATE 300 MG/5 ML UDC GT SCH ×2 (08:28→17:16)
[2018-02-23] MEDS: ASCORBIC ACID 500 MG/5 ML ORASYR GT SCH (08:28)
[2018-02-23] MEDS: amLODIPine 5 MG TAB PO SCH ×2 (08:29→20:57)
[2018-02-23] MEDS: ZINC SULF 220 MG CAP GT SCH (08:29)
[2018-02-23] MEDS: METOPROLOL 50 MG TAB PO SCH ×2 (08:29→20:57)
[2018-02-23] MEDS: VIT-B COMP/VIT-C/FOLIC ACID 1 TAB GT SCH (08:29)
[2018-02-23] MEDS: levETIRAcetam 100 MG/ML ORASYR GT SCH ×2 (08:29→20:56)
[2018-02-23] MEDS: LACTOBACILLUS RHAMNOSUS GG 1 EACH CAP PO SCH ×3 (08:29→17:16)
[2018-02-23] MEDS: THERAHONEY GEL 42.5 GM TP SCH (08:30)
--- NOTE | 2018-02-23 08:50 | NUR ---
PATIENT LYING DOWN IN BED, NO DISTRESS NOTED. GTUBE RESIDUAL CHECKED, 100 ML RESIDUAL. SCHEDULED MEDICATIONS DUE GIVEN. DR. POWERS AT BEDSIDE REVIEWING PLAN OF CARE WITH PATIENT. PER DR. POWERS PATIENT IS NOT A CANDIDATE FOR WEANING OFF THE VENT HE TRIED AT BEDSIDE AND SAID PATIENT'S BREATH WAS TOO SHALLOW WITHOUT THE VENT. SAFETY MEASURES IN PLACE, CALL LIGHT WITHIN REACH. WILL CONTINUE TO MONITOR.
[2018-02-23] MEDS: INSULIN NPH HUMAN ISOPHANE 100 UNIT/ML VIAL SUBQ SCH ×2 (08:51→21:02)
[2018-02-23] MEDS ORDERED: POTASSIUM CHLORIDE 20% 40 MEQ/15 ML UDC GT ONE (09:00)
[2018-02-23] MEDS ORDERED: FUROSEMIDE 20 MG/2 ML VIAL IVP SCH (09:15)
--- NOTE | 2018-02-23 09:58 | NUR ---
NO EVIDENCE OF SOB AT THIS TIME BREATH SOUNDS COARSE RHONCHI BILATERAL WITH GOOD CHEST RISE DEEP TRACHEAL SUCTIN FOR LARGE THICK YELLOW SECRETIONS AIRWAY PATENT VONNIE/RN AND ATMOSPHERIC SCIENCES PROFESSOR'S AT BEDSIDE FOR PATIENT PHYSICAL HYGIENE AND REPOSITION
--- NOTE | 2018-02-23 10:55 | NUR ---
PATIENT IS NOT IN DISTRESS WITH GOOD SYMMETRICAL CHEST RISE AND RHONCHI BILATERALLY, PATIENT SUCTIONED AND RHONCHI BECAME LESS COARSE Addendum: 02/23/18 at 1115 by Adam Cutler RT NIKO SRT; Belen CUTLER,MANAGER ESTATE
--- NOTE | 2018-02-23 10:57 | NUR ---
ASSISTED CORRUGATOR OPERATOR IN CLEANING AND REPOSITIONING PATIENT. SACRAL WOUND AND RIGHT HIP WOUND DRESSING CHANGED DUE TO SOILING PER MD ORDERS. SAFETY MEASURES IN PLACE, CALL LIGHT WITHIN REACH. WILL CONTINUE TO MONITOR.
[2018-02-23 12:00] VITALS: BP 154/61
[2018-02-23] MEDS: PIPER/TAZO 3.375GM/D5W PREMIX 50 ML IV SCH ×2 (12:24→20:59)
[2018-02-23] MEDS: INSULIN LISPRO SLIDING SCALE 100 UNITS/ML VIAL SUBQ PRN ×3 (12:30→21:11)
--- NOTE | 2018-02-23 12:40 | NUR ---
PATIENT LYING IN BED COMFORTABLY. NO DISTRESS NOTED. DENIES ANY PAIN, FLACC 0. SCHEDULED MEDICATIONS DUE GIVEN. CONDITION UNCHANGED. SAFETY MEASURES IN PLACE, CALL LIGHT WITHIN REACH. WILL CONTINUE TO MONITOR.
--- NOTE | 2018-02-23 13:32 | NUR ---
NO SOB NOTED GOOD CHEST RISE DEEP TRACHEAL SUCTION FOR SMALL THIN YELLOW SECRETIONS AIRWAY PATENT
--- NOTE | 2018-02-23 14:38 | NUR ---
POST HHN THERAPY VENTILATOR IN OP PATIENT REMOVED FROM VENTILATOR AMBU BAG WITH SUPPLEMENTAL OXYGEN AT 15 LPM DEPRESSING BAG EVERY 6-8 SECONDS SATURATION 99% REPLACED WITH A [employer] VENTILATOR R860 #1351 ON AND FUNCTIONING WELL
--- NOTE | 2018-02-23 15:25 | NUR ---
COPIOUS AMOUNTS OF THICK YELLOW SECRETIONS -Jossue MARIA Addendum: 02/23/18 at 1543 by Adam FORMAN Jossue MARIA, SRT
[2018-02-23 16:00] VITALS: BP 155/57
--- NOTE | 2018-02-23 17:16 | NUR ---
ASSISTED PROJECT RESERVOIR ENGINEER IN CLEANING AND REPOSITIONING PATIENT. SCHEDULED MEDICATIONS DUE GIVEN. NO DISTRESS NOTED. FLACC 0. SAFETY MEASURES IN PLACE, CALL LIGHT WITHIN REACH. WILL CONTINUE TO MONITOR.
--- NOTE | 2018-02-23 17:32 | NUR ---
STABLE NO EVIDENCE OF RESPIRATORY DISTRESS NOTED DEEP TRACHEAL SUCTION FOR LARGE THICK YELLOW SECRETIONS AIRWAY PATENT Addendum: 02/23/18 at 1752 by Adam Jose RT GOOD CHEST RISE
[2018-02-23] MEDS: ACETYLCYSTEINE 10% (100 MG/ML) 100 MG/ML VIAL INH SCH (19:00)
--- NOTE | 2018-02-23 19:25 | NUR ---
GAVE REPORT TO AIR TRAFFIC CONTROLLER FOR CONTINUITY OF CARE. PATIENT IN STABLE CONDITION.
--- NOTE | 2018-02-23 19:26 | NUR ---
RECEIVED REPORT FROM DAY SHIFT RN FOR CONTINUITY OF CARE. PT IS NONVERBAL ON TRACH TO VENT WITH FIO2 NOW AT 30% PT UNDERSTANDS ESTONIAN ONLY. PT IS UNABLE TO MAKE NEEDS KNOWN, BUT ABLE TO FOLLOW SOME COMMANDS. PT IS BEDBOUND WITH SEVERE WEAKNESS TO ALL EXTREMITIES. RESPIRATIONS EVEN AND UNLABORED. PT SKIN IS NOT INTACT, SEE WOUND ASSESSMENT. PT HAS MIDLINE CATH TO LEFT UPPER ARM, ASYMPTOMATIC, INTACT AND PATENT. DISCUSSED PLAN OF CARE WITH PT. VITAL SIGNS WITHIN NORMAL LIMITS. PT STABLE, NO SIGNS OF DISTRESS NOTED AT THIS TIME. BED IN LOWEST POSITION, BED ALARM ON. CALL LIGHT WITHIN REACH, WILL CONTINUE TO MONITOR.
[2018-02-23 20:00] VITALS: BP 127/46
--- NOTE | 2018-02-23 20:01 | NUR ---
RECEIVED PT STABLE ON VENT SUPPORT AT DOCUMENTED SETTINGS, SUCTIONED SMALL AMOUNTS OF THIN CLEAR WHITE SECRETIONS, HHN TX GIVEN, TOLERATED WELL, NO RESP DISTRESS OR SOB NOTED AT THIS TIME, SHILEY 6 FENESTRATED TRACH SECURE/MIDLINE/PATENT, ALARMS SET AND AUDIBLE, VENT PLUGGED INTO RED OUTLET, AMBU BAG AT BEDSIDE, PULSE OX ON, WILL CONT TO MONITOR.
--- NOTE | 2018-02-23 20:30 | NUR ---
HELPED CHAIN TESTING MACHINE OPERATOR REPOSITION PT.
[2018-02-23] MEDS: ATORVASTATIN 20 MG TAB GT SCH (20:57)
--- NOTE | 2018-02-23 21:11 | NUR ---
ADMINISTERED SCHEDULED MEDICATIONS, PT TOLERATED WELL. NO SIGNS OF DISTRESS NOTED. WILL CONTINUE TO MONITOR PT.
--- NOTE | 2018-02-23 22:30 | NUR ---
HELPED JEWEL CORNER BRUSHING MACHINE OPERATOR REPOSITION PT.
[2018-02-24] VITALS: BP 136/44
--- NOTE | 2018-02-24 | NUR ---
VITAL SIGNS WITHIN NORMAL LIMITS. PT STABLE, NO SIGNS OF DISTRESS NOTED AT THIS TIME. BED IN LOWEST POSITION, BED ALARM ON. CALL LIGHT WITHIN REACH, WILL CONTINUE TO MONITOR.
--- NOTE | 2018-02-24 00:30 | NUR ---
HELPED IV TECHNICIAN REPOSITION PT.
--- NOTE | 2018-02-24 02:00 | NUR ---
RT INCREASED FIO2 TO 35%
--- NOTE | 2018-02-24 02:30 | NUR ---
HELPED ADMINISTRATIVE SUPPORT CLERK REPOSITION PT.
[2018-02-24 04:00] VITALS: BP 120/72
--- NOTE | 2018-02-24 04:00 | NUR ---
HELPED FOOD SERVICE SPECIALIST REPOSITION PT.
--- NOTE | 2018-02-24 04:30 | NUR ---
HELPED DOOR SERVICEMAN REPOSITION PT.
[2018-02-24] MEDS: PIPER/TAZO 3.375GM/D5W PREMIX 50 ML IV SCH (05:40)
[2018-02-24] MEDS: PANTOPRAZOLE 40 MG INJ VIAL IVP SCH (05:41)
[2018-02-24] MEDS: METOCLOPRAMIDE 10 MG/10 ML SYRP UDC GT SCH ×3 (05:41→21:22)
[2018-02-24] MEDS: BLOOD GLUCOSE MONITORING 1 DEV DEV FS SCH ×4 (06:34→21:22)
[2018-02-24] MEDS: ACETYLCYSTEINE 10% (100 MG/ML) 100 MG/ML VIAL INH SCH ×3 (07:00→21:43)
[2018-02-24] MEDS: ALBUTEROL SULFATE/IPRATROPIU 3 ML SOL IH SCH ×3 (07:01→19:44)
[2018-02-24 07:09] LABS: BASOPHILS % (AUTO) 0.5 % (0.0-2.0); EOSINOPHILS # (AUTO) 0.4 K/uL (0-0.4); EOSINOPHILS % (AUTO) 4.4 % (0.0-4.0); HEMATOCRIT 24.5 % (36-52); HEMOGLOBIN 7.9 g/dL (12.0-18.0); LYMPHOCYTES # (AUTO) 1.2 K/uL (2.0-11.5); LYMPHOCYTES % (AUTO) 12.2 % (20.5-51.1); MEAN CORPUSCULAR HEMOGLOBIN 28 pg (27-31); MEAN CORPUSCULAR HGB CONC 32 g/dL (33-37); MEAN CORPUSCULAR VOLUME 87.9 fL (80-94); MONOCYTES # (AUTO) 0.8 K/uL (0.8-1.0); MONOCYTES % (AUTO) 8.3 % (1.7-9.3); NEUTROPHILS # (AUTO) 7.5 K/uL (1.8-7.7); NEUTROPHILS % (AUTO) 74.6 % (42.2-75.2); PLATELET COUNT (AUTO) 349 K/uL (140-450); RED BLOOD CELL COUNT(AUTO) 2.79 MIL/uL (4.20-6.10); RED CELL DISTRIBUTION WIDTH 17.2 % (11.6-13.7); WHITE BLOOD COUNT (AUTO) 10.1 K/uL (4.8-10.8)
--- NOTE | 2018-02-24 07:09 | NUR ---
RECEIVED TRACH PT WITH A SHILEY 6 DFEN TRACH ON VENT. SETTINGS AC 12, VT 500, PEEP 5 AND FIO2 35%. PT SUCTIONED OBTAINED SMALL AMOUNT OF THICK WHITE SECRETIONS, AIRWAY IS PATENT AND TRACH IS SECURE. VENT IS PLUGGED INTO A RED OUTLET WITH ALARMS ON AND FUNCTIONING. PT IS NOT SOB AND NOT IN RESPIRATORY DISTRESS AT THIS TIME. WILL CONTINUE TO MONITOR.
[2018-02-24 07:18] LABS: ANION GAP 10.2 (8-16); CARBON DIOXIDE 30.1 mmol/L (21-32); CHLORIDE 106 mmol/L (98-107); CREATININE 0.7 mg/dL (0.7-1.3); GLUCOSE 169 mg/dL (74-106); POTASSIUM 3.3 mmol/L (3.5-5.1); SODIUM SERUM 143 mmol/L (136-145); UREA NITROGEN, BLOOD 12 mg/dL (7-18)
[2018-02-24 07:29] LABS: MAGNESIUM 1.7 mg/dL (1.8-2.4); PHOSPHORUS 3.4 mg/dL (2.5-4.9)
--- NOTE | 2018-02-24 07:32 | NUR ---
ENDORSED PT TO DAY SHIFT RN FOR CONTINUITY OF CARE. PT IN STABLE CONDITION.
--- NOTE | 2018-02-24 07:33 | NUR ---
RECEIVED REPORT FROM NIGHT RN AT PT BEDSIDE. PATIENT IS AWAKE, MOUTHS WORDS. DOES NOT FOLLOW COMMANDS. FUNC QUAD. TRACH TO VENT. SR ON MONITOR, EDEMA NOTED BUE/ BLE, PITTING +3. G-TUBE IN PLACE, FEEDING TOLERATED WELL. TAM CATH IN PLACE TO GRAVITY IN MODERATE AMOUNT. SKIN CLEAN AND DRY. OFFLOADED PRESSURE AREAS. ON WOUND CARE BED.
[2018-02-24 08:00] VITALS: BP 146/54
[2018-02-24] MEDS ORDERED: POTASSIUM CHLORIDE 20% 40 MEQ/15 ML UDC GT SCH (08:00)
[2018-02-24] MEDS ORDERED: MAG SULF 2000 MG/WATER PREMIX 50 ML IV ONE (08:50)
[2018-02-24] MEDS: THERAHONEY GEL 42.5 GM TP SCH (09:00)
[2018-02-24] MEDS ORDERED: POTASSIUM CHLORIDE 20% 40 MEQ/15 ML UDC PO SCH (09:00)
[2018-02-24] MEDS: ASCORBIC ACID 500 MG/5 ML ORASYR GT SCH (09:21)
[2018-02-24] MEDS: levETIRAcetam 100 MG/ML ORASYR GT SCH ×2 (09:21→21:21)
[2018-02-24] MEDS: LACTOBACILLUS RHAMNOSUS GG 1 EACH CAP PO SCH ×3 (09:21→17:01)
[2018-02-24] MEDS: METOPROLOL 50 MG TAB PO SCH ×2 (09:22→21:23)
[2018-02-24] MEDS: FERROUS SULFATE 300 MG/5 ML UDC GT SCH ×2 (09:22→17:01)
[2018-02-24] MEDS: amLODIPine 5 MG TAB PO SCH ×2 (09:22→21:23)
[2018-02-24] MEDS: VIT-B COMP/VIT-C/FOLIC ACID 1 TAB GT SCH (09:22)
[2018-02-24] MEDS: INSULIN NPH HUMAN ISOPHANE 100 UNIT/ML VIAL SUBQ SCH ×2 (09:40→21:19)
[2018-02-24] MEDS: ZINC SULF 220 MG CAP GT SCH (09:41)
[2018-02-24] MEDS: MAGNESIUM SULFATE 1GM in DEXTROSE 5% 100 ML PREMIX IV SCH ×2 (09:41→10:57)
--- NOTE | 2018-02-24 11:18 | NUR ---
Filter Screen Cleaner Note: I faxed patient's clinical information to [facility], phone number .
[2018-02-24] MEDS: INSULIN LISPRO SLIDING SCALE 100 UNITS/ML VIAL SUBQ PRN ×2 (11:53→17:01)
[2018-02-24 12:00] VITALS: BP 133/54
--- NOTE | 2018-02-24 12:00 | NUR ---
PATIENT ASSISTED IN CHANGING OF POSITIONS, OFFLOADED PRESSURE AREAS. FEEDING TUBE CHANGED. WOUND CARE DONE AT BEDSIDE, DRESSINGS CLEAN DRY AND INTACT.
--- NOTE | 2018-02-24 12:01 | NUR ---
PT SUCTIONED OBTAINED SMALL AMOUNT OF THICK WHITE SECRETIONS, AIRWAY IS PATENT AND TRACH IS SECURE. WILL CONTINUE TO MONITOR.
--- NOTE | 2018-02-24 13:31 | NUR ---
02/24/18 RD FOLLOW UP COMPLETED PLEASE REFER TO NUTRITION ASSESSMENT UNDER CARE ACTIVITY FOR ESTIMATED NUTRITIONAL NEEDS. 1. CONTINUE GLUCERNA 75 ML/HR -THIS WILL PROVIDE 1800 ML, 2160 KCAL, AND 108 GM PROTEIN, MEETING 79% OF ESTIMATED KCAL AND 78% OF ESTIMATED PROTEIN NEEDS. 2. RD TO FOLLOW-UP 2-3 DAYS, HIGH RISK MARIELA LUGO, RD
--- NOTE | 2018-02-24 14:05 | NUR ---
Prescription Clerk Note: Per Jassi [facility], phone number , they do not have any isolation beds available at this time, he stated they will contact our nursing staff tomorrow and provide them with an update regarding bed availability, patient's nurse Frank made aware.
--- NOTE | 2018-02-24 15:17 | NUR ---
PATIENT SLEEPING, ORAL CARE PROVIDED, MINIMAL WHITE SECRETIONS. NO S/S OF ACUTE DISTRESS NOTED. MIDLINE PATENT AND INTACT.
--- NOTE | 2018-02-24 15:30 | NUR ---
PT SLEEPING AT THIS TIME. VENT PARAMETERS WITHIN NORMAL LIMITS. WILL CONTINUE TO MONITOR.
[2018-02-24] MEDS: HYDROCOLLOID DRESSING TP SCH ×2 (15:43→17:00)
--- NOTE | 2018-02-24 15:52 | NUR ---
Ground Services Instructor Note: Per Jassi from [facility] , patient may return to room 20B tomorrow after 10am, accepting physician is , both upper caser Blossom and patient's nurse Frank del valle. Addendum: 02/24/18 at 1554 by Nrey GRAHAM Per Jassi, they are able to accommodate patient on isolation.
[2018-02-24 16:00] VITALS: BP 124/49
[2018-02-24] MEDS: ACETAMINOPHEN 325 MG TAB PO PRN (17:22)
--- NOTE | 2018-02-24 17:22 | NUR ---
DR. SALMON MADE AWARE OF TEMP 100.8F, MEDICATED ORDERED PRN ACETAMINOPHEN. NO NEW ORDERS.
--- NOTE | 2018-02-24 19:15 | NUR ---
SBAR REPORT GIVEN TO NIGHT RN AT PT BEDSIDE. PATIENT CONTINUED ON VENT. NO S/S OF ACUTE DISTRESS NOTED.
--- NOTE | 2018-02-24 19:16 | NUR ---
RECEIVED REPORT FROM DAY SHIFT RN FOR CONTINUITY OF CARE. PT IS NONVERBAL ON TRACH TO VENT WITH FIO2 NOW AT 35% PT UNDERSTANDS TAJIK ONLY. PT IS UNABLE TO MAKE NEEDS KNOWN, BUT ABLE TO FOLLOW SOME COMMANDS. PT IS BEDBOUND WITH SEVERE WEAKNESS TO ALL EXTREMITIES. RESPIRATIONS EVEN AND UNLABORED.45ML RESIDUAL FROM G-TUBE NOTED. GTUBE RUNNG AT 75ML/HR. TAM CATHETER IN PLACE. PT SKIN IS NOT INTACT, SEE WOUND ASSESSMENT. PT HAS MIDLINE CATH TO LEFT UPPER ARM, ASYMPTOMATIC, INTACT AND PATENT. DISCUSSED PLAN OF CARE WITH PT. VITAL SIGNS WITHIN NORMAL LIMITS. PT STABLE, NO SIGNS OF DISTRESS NOTED AT THIS TIME. BED IN LOWEST POSITION, BED ALARM ON. CALL LIGHT WITHIN REACH, WILL CONTINUE TO MONITOR.
[2018-02-24 20:00] VITALS: BP 144/60
[2018-02-24] MEDS: ATORVASTATIN 20 MG TAB GT SCH (21:22)
--- NOTE | 2018-02-24 21:25 | NUR ---
SPOKE TO DR GUY REGARDING BLOOD SUGAR AT THE MOMENT BEING 153 AND PT HAVING 60 UNITS NPH INSULIN SCHEDULED NOW. SAID IT WAS OK NOT TO COVER WITH HUMALOG INSULIN AND OK TO GIVE SCHEDULED 60 UNITS OF NPH INSULIN. ADMINISTERED SCHEDULED MEDICATIONS. GTUBE MEDICATIONS CRUSHED AND PUSHED ONE AT A TIME WITH 10ML OF WATER FLUSH IN BETWEEN FOLLOWED BY 60ML WATER FLUSH AFTER LAST MEDICATION. PT TOLERATED WELL.
--- NOTE | 2018-02-24 22:50 | NUR ---
RECEIVED REPORT FROM DAY SHIFT RN FOR CONTINUITY OF CARE. PT IS NONVERBAL ON TRACH TO VENT WITH FIO2 NOW AT 35% PT UNDERSTANDS TURKISH ONLY. PT IS UNABLE TO MAKE NEEDS KNOWN, BUT ABLE TO FOLLOW SOME COMMANDS. PT IS BEDBOUND WITH SEVERE WEAKNESS TO ALL EXTREMITIES. RESPIRATIONS EVEN AND UNLABORED.45ML RESIDUAL FROM G-TUBE NOTED. GTUBE RUNNG AT 75ML/HR. TAM CATHETER IN PLACE. PT SKIN IS NOT INTACT, SEE WOUND ASSESSMENT. PT HAS MIDLINE CATH TO LEFT UPPER ARM, ASYMPTOMATIC, INTACT AND PATENT. DISCUSSED PLAN OF CARE WITH PT. VITAL SIGNS WITHIN NORMAL LIMITS. PT STABLE, NO SIGNS OF DISTRESS NOTED AT THIS TIME. BED IN LOWEST POSITION, BED ALARM ON. CALL LIGHT WITHIN REACH, WILL CONTINUE TO MONITOR. Addendum: 02/24/18 at 2252 by Yuridia Vaughn RN PLEASE DISREGARD.
[2018-02-25] VITALS: BP 146/60
[2018-02-25] MEDS ORDERED: KCL 20 MEQ/WATER INJ PREMIX 100 ML IV SCH (00:30)
[2018-02-25] MEDS ORDERED: MAG SULF 2000 MG/WATER PREMIX 50 ML IV SCH (00:30)
[2018-02-25 04:00] VITALS: BP 144/63
[2018-02-25] MEDS: PANTOPRAZOLE 40 MG INJ VIAL IVP SCH (05:52)
[2018-02-25] MEDS: METOCLOPRAMIDE 10 MG/10 ML SYRP UDC GT SCH ×3 (05:52→20:46)
--- NOTE | 2018-02-25 05:53 | NUR ---
ADMINISTERED SCHEDULED MEDICATIONS, PT TOLERATED WELL. NO SIGNS OF DISTRESS NOTED AT THIS TIME. BED IN LOWEST POSITION, BED ALARM ON. CALL LIGHT WITHIN REACH, WILL CONTINUE TO MONITOR.
[2018-02-25] MEDS: INSULIN LISPRO SLIDING SCALE 100 UNITS/ML VIAL SUBQ PRN ×4 (06:04→22:35)
[2018-02-25] MEDS: BLOOD GLUCOSE MONITORING 1 DEV DEV FS SCH ×4 (06:05→20:31)
--- NOTE | 2018-02-25 07:05 | NUR ---
RECEIVED REPORT FROM NIGHTSHIFT NURSE AT BEDSIDE. PATIENT IS APHASIC AT THIS TIME. NO DISTRESS NOTED. FLACC SCORE 0. PATIENT IS TRACH TO VENT. RESPIRATORY THERAPIST AT BEDSIDE AT THIS TIME. PATIENT HAS A MIDLINE LEFT UPPER ARM PICC LINE. PATIENT'S WOUNDS LOCATED ON THE SACRAL AREA AND LEFT ANKLE. LEFT ANKLE HAS A HEEL / BOOT PROTECTOR. PATIENT HAS A G-TUBE WITH GLUCERNA 1.2 FEEDING RUNNING AT 75 ML/HR. APPROPRIATE SIGNS PLACED WITHIN THE ROOM. BED LOWERED TO LOWEST SETTING. UPDATED BOARD IN PATIENT'S ROOM. WILL CONTINUE TO MONITOR PATIENT.
[2018-02-25] MEDS: ALBUTEROL SULFATE/IPRATROPIU 3 ML SOL IH SCH ×3 (07:09→19:16)
[2018-02-25] MEDS: ACETYLCYSTEINE 10% (100 MG/ML) 100 MG/ML VIAL INH SCH ×3 (07:10→19:17)
--- NOTE | 2018-02-25 07:10 | NUR ---
RECEIVED ON A Hello CurrySCAPE R860 VENTILATOR WITH COMPRESSOR ON AND FUNCTIONING WELL PLUGGED INTO RED OUTLET TOLERATING WELL WITHOUT ADVERSE REACTIONS NOTED TO A MARISEL [employer] #6 AIRWAY SECURED WITH A ADELFO TRAC TIE CUFF PRESSURE CHECKED NOTED AMBU BAG AT HOB BREATH SOUNDS RHONCHI BILATERAL WITH GOOD CHEST RISE DEEP TRACHEAL SUCTION FOR MODERATE THIN YELLOW SECRETIONS AIRWAY PATENT
--- NOTE | 2018-02-25 07:15 | NUR ---
ENDORSED PT TO DAY SHIFT RN FOR CONTINUITY OF CARE, PT IN STABLE CONDITION.
[2018-02-25 08:00] VITALS: BP 146/57
[2018-02-25] MEDS: ACETAMINOPHEN 325 MG TAB PO PRN ×2 (08:20→16:56)
--- NOTE | 2018-02-25 08:20 | NUR ---
PATIENT'S TEMPERATURE IS 100.3. ADMINISTERED TYLENOL TO PATIENT. WILL REASSESS
[2018-02-25 08:54] LABS: BASOPHILS % (AUTO) 0.5 % (0.0-2.0); EOSINOPHILS # (AUTO) 0.5 K/uL (0-0.4); EOSINOPHILS % (AUTO) 4.7 % (0.0-4.0); HEMATOCRIT 25.7 % (36-52); HEMOGLOBIN 7.9 g/dL (12.0-18.0); LYMPHOCYTES # (AUTO) 1.4 K/uL (2.0-11.5); MEAN CORPUSCULAR HEMOGLOBIN 27 pg (27-31); MEAN CORPUSCULAR HGB CONC 31 g/dL (33-37); MEAN CORPUSCULAR VOLUME 88.8 fL (80-94); MONOCYTES # (AUTO) 0.9 K/uL (0.8-1.0); NEUTROPHILS % (AUTO) 71.8 % (42.2-75.2); PLATELET COUNT (AUTO) 395 K/uL (140-450); RED CELL DISTRIBUTION WIDTH 17.4 % (11.6-13.7); WHITE BLOOD COUNT (AUTO) 9.7 K/uL (4.8-10.8)
[2018-02-25] MEDS: INSULIN NPH HUMAN ISOPHANE 100 UNIT/ML VIAL SUBQ SCH ×2 (08:54→20:38)
[2018-02-25] MEDS: levETIRAcetam 100 MG/ML ORASYR GT SCH ×2 (09:00→20:45)
[2018-02-25] MEDS: FERROUS SULFATE 300 MG/5 ML UDC GT SCH ×2 (09:00→16:55)
[2018-02-25] MEDS: THERAHONEY GEL 42.5 GM TP SCH (09:00)
[2018-02-25] MEDS: LACTOBACILLUS RHAMNOSUS GG 1 EACH CAP PO SCH ×3 (09:01→16:56)
[2018-02-25] MEDS: ZINC SULF 220 MG CAP GT SCH (09:02)
[2018-02-25] MEDS: VIT-B COMP/VIT-C/FOLIC ACID 1 TAB GT SCH (09:02)
[2018-02-25] MEDS: ASCORBIC ACID 500 MG/5 ML ORASYR GT SCH (09:03)
[2018-02-25] MEDS: METOPROLOL 50 MG TAB PO SCH ×2 (09:03→20:46)
[2018-02-25] MEDS: amLODIPine 5 MG TAB PO SCH ×2 (09:04→20:46)
--- NOTE | 2018-02-25 09:04 | NUR ---
PATIENT TOOK ALL MEDICATIONS VIA G-TUBE. PATIENT TOLERATED WELL.
[2018-02-25 09:07] LABS: ANION GAP 8.3 (8-16); CHLORIDE 106 mmol/L (98-107); CREATININE 0.6 mg/dL (0.7-1.3); GLUCOSE 221 mg/dL (74-106); POTASSIUM 4.3 mmol/L (3.5-5.1); SODIUM SERUM 140 mmol/L (136-145); UREA NITROGEN, BLOOD 12 mg/dL (7-18)
[2018-02-25 09:10] LABS: MAGNESIUM 1.7 mg/dL (1.8-2.4); PHOSPHORUS 3.3 mg/dL (2.5-4.9)
--- NOTE | 2018-02-25 09:35 | NUR ---
PATIENT TEMPERATURE IS AT 98.4. WILL CONTINUE TO MONITOR PATIENT.
--- NOTE | 2018-02-25 10:17 | NUR ---
NO EVIDENCE OF PULMONARY DISTRESS NOTED BREATH SONDS CLEAR BILATERAL WITH GOOD CHEST RISE AIRWAY PATENT
[2018-02-25 12:17] VITALS: BP 129/57
--- NOTE | 2018-02-25 14:38 | NUR ---
RESTING WELL NO DISTRESS NOTED GOOD CHEST RISE DEEP TRACHEAL SUCTION FOR MODERATE THICK PALE YELLOW SECRETIONS AIRWAY PATENT
--- NOTE | 2018-02-25 15:12 | NUR ---
RESTING COMFORTABLY WITHOUT RESPIRATORY DISTRESS NOTED GOOD CHEST RISE AIRWAY PATENT VENTILATOR WITH COMPRESSOR FUNCTIONING WELL
--- NOTE | 2018-02-25 15:29 | NUR ---
PATIENT RESTING IN BED. NO DISTRESS NOTED. WILL CONTINUE TO MONITOR PATIENT.
[2018-02-25 16:30] VITALS: BP 137/57
--- NOTE | 2018-02-25 16:56 | NUR ---
PATIENT PRESENTED WITH ELEVATED TEMPERATURE. ADMINISTERED TYLENOL TO PATIENT VIA G-TUBE. WILL CONTINUE TO MONITOR PATIENT.
--- NOTE | 2018-02-25 17:30 | NUR ---
RESTING WELL NO SOB NOTED BREATH SOUNDS EXP RHONCHI BILATERAL WTIH GOOD CHEST RISE DEEP TRACHEAL SUCTION FOR MODERATE THICK YELLOW SECRETIONS AIRWAY PATENT
[2018-02-25] MEDS ORDERED: KETOROLAC 15 MG/ML VIAL IM SCH (19:00)
--- NOTE | 2018-02-25 19:05 | NUR ---
GAVE REPORT TO NIGHTSHIFT NURSE AT BEDSIDE. ENDORSED TORADOL MEDICATION TO NURSE. PATIENT'S TEMPERATURE IS 98.[address]. PATIENT IN STABLE CONDITION.
--- NOTE | 2018-02-25 19:06 | NUR ---
PATIENT REPORT RECEIVED FROM MORNING NURSE AT BEDSIDE. PATIENT IS ASLEEP, BUT EASY TO AROUSE BY VOICE. PATIENT IS BEDBOUND. TRACH TO VENT. NO SIGNS AND SYMPTOMS OF DISTRESS NOTED. BREATHING EVEN AND UNLABORED. LEFT UPPER ARM PICC LINE NOTED. DRESSING DRY AND INTACT. GTUBE NOTED WITH GTUBE FEEDING CURRENTLY RUNNING AT 75ML/HR. TAM CATHETER IN PLACE DRAINING CLEAR YELLOW URINE. SAFETY PRECAUTIONS IN PLACE. WILL CONTINUE TO MONITOR. Addendum: 02/25/18 at 2246 by Bogdan Lin RN *LEFT UPPER ARM MIDLINE
[2018-02-25 20:00] VITALS: BP 133/58
[2018-02-25] MEDS: MAGNESIUM OXIDE 400 MG TAB GT SCH (20:45)
[2018-02-25] MEDS: ATORVASTATIN 20 MG TAB GT SCH (20:45)
--- NOTE | 2018-02-25 21:00 | NUR ---
MEDICATION EDUCATION GIVEN. MEDICATION ADMINISTERED ORDERED. PATIENT TOLERATED WELL. WILL CONTINUE TO MONITOR
--- NOTE | 2018-02-25 21:30 | NUR ---
NEW BOTTLE OF GLUCERNA 1.2 TUBE FEEDING STARTED. NO RESIDUAL NOTED IN G-TUBE. TUBE FEEDING TO RUN AT 75ML/HR. WILL CONTINUE TO MONITOR
[2018-02-26] VITALS: BP 132/43
--- NOTE | 2018-02-26 | NUR ---
PATIENT REPOSITIONED FOR COMFORT. VAP ORAL CARE DONE. PATIENT TOLERATED WELL. WILL CONTINUE TO MONITOR
--- NOTE | 2018-02-26 02:00 | NUR ---
CHECKED ON PATIENT. PATIENT IS ASLEEP. NO SIGNS AND SYMPTOMS OF DISTRESS NOTED. BREATHING EVEN AND UNLABORED. WILL CONTINUE TO MONITOR
[2018-02-26 04:00] VITALS: BP 146/71
--- NOTE | 2018-02-26 04:00 | NUR ---
PATIENT REPOSITIONED FOR COMFORT. VAP ORAL CARE DONE. PATIENT TOLERATED WELL. WILL CONTINUE TO MONITOR
[2018-02-26] MEDS: PANTOPRAZOLE 40 MG INJ VIAL IVP SCH (05:29)
[2018-02-26] MEDS: METOCLOPRAMIDE 10 MG/10 ML SYRP UDC GT SCH ×3 (05:29→20:14)
[2018-02-26] MEDS: BLOOD GLUCOSE MONITORING 1 DEV DEV FS SCH ×4 (05:41→20:13)
[2018-02-26] MEDS: INSULIN LISPRO SLIDING SCALE 100 UNITS/ML VIAL SUBQ PRN ×3 (05:41→20:26)
--- NOTE | 2018-02-26 06:30 | NUR ---
PATIENT REPOSITIONED FOR COMFORT. VAP ORAL CARE DONE. PATIENT TOLERATED WELL. WILL CONTINUE TO MONITOR
[2018-02-26] MEDS: ACETYLCYSTEINE 10% (100 MG/ML) 100 MG/ML VIAL INH SCH ×3 (06:59→19:20)
[2018-02-26] MEDS: ALBUTEROL SULFATE/IPRATROPIU 3 ML SOL IH SCH ×3 (06:59→19:20)
--- NOTE | 2018-02-26 06:59 | NUR ---
REC'D PT ON CARESCAPE VENT SETTINGS AC12 VT 500 PEEP 5 FIO2 30% ALARMS ON AND AUDIBLE AND AMBU BAG IS AT HOB VENT IS PLUGGED INTO RED OUTLET, I\E TX GIVEN WITH DUONEB 3ML AND MUCOMYST 10% 1 ML WITH NO ADVERSE REACTION POST TX B\S ARE COARSE BILATERALLY, SNX PT SMALL AMT OF YELLOW SECRETIONS, PT IS TRACH WITH SHILEY 8 AND SKIN INTEGRITY IS INTACT, PT IS RESTING
--- NOTE | 2018-02-26 07:20 | NUR ---
PATIENT REPORT GIVEN TO MORNING NURSE AT BEDSIDE. PATIENT IS IN STABLE CONDITION
--- NOTE | 2018-02-26 07:21 | NUR ---
RECEIVED REPORT FROM NIGHT RN AT PT BEDSIDE. PATIENT IS AWAKE, MOUTHS WORDS. DOES NOT FOLLOW COMMANDS. FUNC QUAD. TRACH TO VENT. SR ON MONITOR, EDEMA NOTED BUE/ BLE, PITTING +3. G-TUBE IN PLACE, FEEDING TOLERATED WELL 40ML RESIDUAL NOTED. TAM CATH IN PLACE TO GRAVITY IN MODERATE AMOUNT. SKIN CLEAN AND DRY. OFFLOADED PRESSURE AREAS. ON WOUND CARE BED.
[2018-02-26 08:00] VITALS: BP 144/53
[2018-02-26 08:10] LABS: BASOPHILS # (AUTO) 0.1 K/uL (0.00-0.22); BASOPHILS % (AUTO) 0.6 % (0.0-2.0); EOSINOPHILS # (AUTO) 0.5 K/uL (0-0.4); EOSINOPHILS % (AUTO) 5.6 % (0.0-4.0); HEMATOCRIT 25.6 % (36-52); HEMOGLOBIN 8.2 g/dL (12.0-18.0); LYMPHOCYTES # (AUTO) 1.4 K/uL (2.0-11.5); LYMPHOCYTES % (AUTO) 15.8 % (20.5-51.1); MEAN CORPUSCULAR HEMOGLOBIN 28 pg (27-31); MEAN CORPUSCULAR HGB CONC 32 g/dL (33-37); MEAN CORPUSCULAR VOLUME 87.4 fL (80-94); MONOCYTES # (AUTO) 0.8 K/uL (0.8-1.0); MONOCYTES % (AUTO) 9.2 % (1.7-9.3); NEUTROPHILS # (AUTO) 6.1 K/uL (1.8-7.7); NEUTROPHILS % (AUTO) 68.8 % (42.2-75.2); PLATELET COUNT (AUTO) 404 K/uL (140-450); RED BLOOD CELL COUNT(AUTO) 2.92 MIL/uL (4.20-6.10); RED CELL DISTRIBUTION WIDTH 17.2 % (11.6-13.7); WHITE BLOOD COUNT (AUTO) 8.9 K/uL (4.8-10.8)
[2018-02-26 08:26] LABS: ANION GAP 9.1 (8-16); CHLORIDE 105 mmol/L (98-107); CREATININE 0.6 mg/dL (0.7-1.3); GLUCOSE 165 mg/dL (74-106); POTASSIUM 4.1 mmol/L (3.5-5.1); SODIUM SERUM 140 mmol/L (136-145); UREA NITROGEN, BLOOD 15 mg/dL (7-18)
[2018-02-26 08:31] LABS: MAGNESIUM 1.8 mg/dL (1.8-2.4); PHOSPHORUS 3.5 mg/dL (2.5-4.9)
[2018-02-26] MEDS: METOPROLOL 50 MG TAB PO SCH ×2 (08:32→20:14)
[2018-02-26] MEDS: VIT-B COMP/VIT-C/FOLIC ACID 1 TAB GT SCH (08:33)
[2018-02-26] MEDS: amLODIPine 5 MG TAB PO SCH ×2 (08:33→20:14)
[2018-02-26] MEDS: LACTOBACILLUS RHAMNOSUS GG 1 EACH CAP PO SCH ×3 (08:33→16:56)
[2018-02-26] MEDS: ZINC SULF 220 MG CAP GT SCH (08:33)
[2018-02-26] MEDS: MAGNESIUM OXIDE 400 MG TAB GT SCH (08:33)
[2018-02-26] MEDS: FERROUS SULFATE 300 MG/5 ML UDC GT SCH ×2 (08:34→16:55)
[2018-02-26] MEDS: levETIRAcetam 100 MG/ML ORASYR GT SCH ×2 (08:34→20:14)
[2018-02-26] MEDS: ASCORBIC ACID 500 MG/5 ML ORASYR GT SCH (08:34)
[2018-02-26] MEDS: INSULIN NPH HUMAN ISOPHANE 100 UNIT/ML VIAL SUBQ SCH ×2 (08:36→20:25)
[2018-02-26] MEDS: THERAHONEY GEL 42.5 GM TP SCH (09:00)
--- NOTE | 2018-02-26 09:04 | NUR ---
VENT CHECK, NO SXN NEEDED AIRWAY PATENT
--- NOTE | 2018-02-26 10:10 | NUR ---
PATIENT ASSISTED IN CHANGING OF POSITIONS. LINENS CHANGED, PATIENT HAD LARGE BM. WOUND DRESSINGS CHANGED, CLEAN DRY AND INTACT. CONTINUED ON TRACH TO VENT.
--- NOTE | 2018-02-26 11:05 | NUR ---
VENT CHECK, SXN PT SMALL AMT OF YELLOW SECRETIONS, AIRWAY IS PATENT AND PT IS RESTING
[2018-02-26 12:00] VITALS: BP 132/50
--- NOTE | 2018-02-26 13:10 | NUR ---
VENT CHECK NO SXN NEEDED PT SLEEPING WITH NO SIGNS OF DISTRESS NOTED AT THIS TIME NO HHN GIVEN
--- NOTE | 2018-02-26 14:22 | NUR ---
PATIENT ASSISTED IN CHANGING OF POSITIONS Q2H DURING SHIFT. OFFLOADED PRESSURE AREAS. SKIN KEPT CLEAN AND DRY. PATIENT RESTING, NO S/S OF ACUTE DISTRESS NOTED, CONTINUED ON TRACH TO VENT.
--- NOTE | 2018-02-26 15:01 | NUR ---
VENT CHECK, SXN PT SMALL AMT OF YELLOW SECRETIONS PT IS RESTING
[2018-02-26 16:00] VITALS: BP 141/51
--- NOTE | 2018-02-26 16:53 | NUR ---
VENT CHECK, NO SNX NEEDED TRACH CARE DONE PT RESTING
[2018-02-26] MEDS: HYDROCOLLOID DRESSING TP SCH (16:55)
--- NOTE | 2018-02-26 19:11 | NUR ---
SBAR REPORT GIVEN TO NIGHT RN AT PT BEDSIDE. NO S/S OF ACUTE DISTRESS NOTED.
--- NOTE | 2018-02-26 19:12 | NUR ---
PATIENT REPORT RECEIVED FROM MORNING NURSE AT BEDSIDE. PATIENT IS ASLEEP, BUT EASY TO AROUSE BY VOICE. PATIENT IS BEDBOUND. TRACH TO VENT. NO SIGNS AND SYMPTOMS OF DISTRESS NOTED. BREATHING EVEN AND UNLABORED. LEFT UPPER ARM MIDLINE NOTED. DRESSING DRY AND INTACT. GTUBE NOTED WITH GTUBE FEEDING CURRENTLY RUNNING AT 75ML/HR. TAM CATHETER IN PLACE DRAINING CLEAR YELLOW URINE. SAFETY PRECAUTIONS IN PLACE. WILL CONTINUE TO MONITOR.
[2018-02-26 20:00] VITALS: BP 138/61
[2018-02-26] MEDS: ATORVASTATIN 20 MG TAB GT SCH (20:14)
--- NOTE | 2018-02-26 21:00 | NUR ---
MEDICATION EDUCATION GIVEN. GTUBE RESIDUAL CHECKED. NO RESIDUAL NOTED. MEDICATION ADMINISTERED ORDERED
--- NOTE | 2018-02-26 21:30 | NUR ---
PATIENT REPOSITIONED FOR COMFORT. VAP ORAL CARE DONE. PATIENT TOLERATED WELL. WILL CONTINUE TO MONITOR
[2018-02-27] VITALS: BP 132/58
--- NOTE | 2018-02-27 | NUR ---
PATIENT REPOSITIONED FOR COMFORT. VAP ORAL CARE DONE. PATIENT TOLERATED WELL. WILL CONTINUE TO MONITOR
--- NOTE | 2018-02-27 02:00 | NUR ---
NEW BAG OF TUBE FEEDING STARTED. NO RESIDUAL NOTED IN GTUBE. TUBE FEEDING TO RUN AT 75ML/HR.
[2018-02-27] MEDS: ACETAMINOPHEN 325 MG TAB PO PRN (03:51)
[2018-02-27 04:00] VITALS: BP 158/62
--- NOTE | 2018-02-27 04:00 | NUR ---
PATIENT'S TEMPERATURE 100.8 WILL MEDICATE ORDERED
--- NOTE | 2018-02-27 04:30 | NUR ---
PATIENT HAD A BOWEL MOVEMENT. PERICARE AND CATHETER CARE DONE. PATIENT REPOSITIONED FOR COMFORT. PATIENT TOLERATED WELL. WILL CONTINUE TO MONITOR
[2018-02-27] MEDS: PANTOPRAZOLE 40 MG INJ VIAL IVP SCH (05:36)
[2018-02-27] MEDS: METOCLOPRAMIDE 10 MG/10 ML SYRP UDC GT SCH ×2 (05:36→12:35)
[2018-02-27] MEDS: INSULIN LISPRO SLIDING SCALE 100 UNITS/ML VIAL SUBQ PRN ×3 (05:41→16:40)
[2018-02-27] MEDS: BLOOD GLUCOSE MONITORING 1 DEV DEV FS SCH ×3 (05:44→16:30)
--- NOTE | 2018-02-27 05:49 | NUR ---
RECHECKED PATIENT'S TEMPERATURE. TEMPERATURE NOW 99.0
[2018-02-27] MEDS ORDERED: Therahoney Gel TP (06:32)
[2018-02-27] MEDS ORDERED: FER300L GT (06:32)
[2018-02-27] MEDS ORDERED: HYDROCOLLOID DRESSING TP (06:32)
[2018-02-27] MEDS: ALBUTEROL SULFATE/IPRATROPIU 3 ML SOL IH SCH ×2 (06:41→13:16)
[2018-02-27] MEDS: ACETYLCYSTEINE 10% (100 MG/ML) 100 MG/ML VIAL INH SCH ×2 (06:42→13:16)
--- NOTE | 2018-02-27 06:49 | NUR ---
RECEIVED PT ON CARESCAPE ON DOCUMENTED SETTINGS ALARMS ARE ON AND AUDIBLE PTS TRACH SHILEY 6 DFEN IS SECURE PT IN HF ASLEEP HHN GIVEN I\L WITH 3 MG DUONEB BS COARSE CONT POX IN PLACE VENT PLUGGED INTO RED OUTLET BMV HOB
--- NOTE | 2018-02-27 07:30 | NUR ---
RECEIVED PT FROM PM NURSE, PT AWAKE, ALERT. BEDBOUND, TRACH TO VENT, NO S/S OF RESPIRATORY DISTRESS NOTED. PT HAS G-TUBE RUNNING GLUCERNIA 1.2 AT 75 MLS/HR, RESIDUAL CHECKED , ZERO. PT ALSO HAS MIDLINE TO LEFT UPPER ARM, INTACT AND PATENT. F/C IN PLACE WITH YELLOW URINE NOTED. SKIN NON INTACT ( SEE WOUND ASSESSMENT),PT UNABLE TO MOVE ALL HIS EXTREMITIES, REORIENTED PT ENVIRONMENT AND INTRODUCED MY SELF. HOB ELEVATED 30 DEGREES WITH LOW BED POSITION, WILL CONTINUE TO MONITOR.
--- NOTE | 2018-02-27 07:35 | NUR ---
PATIENT REPORT GIVEN TO MORNING NURSE AT BEDSIDE FOR CONTINUITY OF CARE. PATIENT IS IN STABLE CONDITION
[2018-02-27 08:00] VITALS: BP 141/61
[2018-02-27 08:22] LABS: BASOPHILS # (AUTO) 0.1 K/uL (0.00-0.22); BASOPHILS % (AUTO) 0.6 % (0.0-2.0); EOSINOPHILS # (AUTO) 0.4 K/uL (0-0.4); EOSINOPHILS % (AUTO) 3.7 % (0.0-4.0); HEMATOCRIT 26.6 % (36-52); HEMOGLOBIN 8.2 g/dL (12.0-18.0); LYMPHOCYTES # (AUTO) 1.3 K/uL (2.0-11.5); LYMPHOCYTES % (AUTO) 10.9 % (20.5-51.1); MEAN CORPUSCULAR HEMOGLOBIN 27 pg (27-31); MEAN CORPUSCULAR HGB CONC 31 g/dL (33-37); MEAN CORPUSCULAR VOLUME 87.2 fL (80-94); MONOCYTES # (AUTO) 0.8 K/uL (0.8-1.0); MONOCYTES % (AUTO) 6.4 % (1.7-9.3); NEUTROPHILS # (AUTO) 9.5 K/uL (1.8-7.7); NEUTROPHILS % (AUTO) 78.4 % (42.2-75.2); PLATELET COUNT (AUTO) 430 K/uL (140-450); RED BLOOD CELL COUNT(AUTO) 3.05 MIL/uL (4.20-6.10); WHITE BLOOD COUNT (AUTO) 12.1 K/uL (4.8-10.8)
[2018-02-27 08:37] LABS: MAGNESIUM 1.5 mg/dL (1.8-2.4); PHOSPHORUS 3.2 mg/dL (2.5-4.9)
--- NOTE | 2018-02-27 09:00 | NUR ---
ORAL CARE GIVEN, DUE MEDS GIVEN. SUCTIONED PT WITH MODERATE AMOUNT OF CREAMY SECRETION NOTED,WILL CONTINUE TO MONITOR.
[2018-02-27 09:36] LABS: CARBON DIOXIDE 29.3 mmol/L (21-32); CHLORIDE 103 mmol/L (98-107); CREATININE 0.6 mg/dL (0.7-1.3); GLUCOSE 211 mg/dL (74-106); POTASSIUM 4.3 mmol/L (3.5-5.1); SODIUM SERUM 138 mmol/L (136-145); UREA NITROGEN, BLOOD 14 mg/dL (7-18)
[2018-02-27] MEDS: LACTOBACILLUS RHAMNOSUS GG 1 EACH CAP PO SCH ×3 (09:46→16:35)
[2018-02-27] MEDS: levETIRAcetam 100 MG/ML ORASYR GT SCH (09:47)
[2018-02-27] MEDS: METOPROLOL 50 MG TAB PO SCH (09:47)
[2018-02-27] MEDS: amLODIPine 5 MG TAB PO SCH (09:47)
[2018-02-27] MEDS: FERROUS SULFATE 300 MG/5 ML UDC GT SCH ×2 (09:48→16:36)
[2018-02-27] MEDS: VIT-B COMP/VIT-C/FOLIC ACID 1 TAB GT SCH (09:48)
[2018-02-27] MEDS: ZINC SULF 220 MG CAP GT SCH (09:48)
[2018-02-27] MEDS: INSULIN NPH HUMAN ISOPHANE 100 UNIT/ML VIAL SUBQ SCH (09:52)
[2018-02-27] MEDS: THERAHONEY GEL 42.5 GM TP SCH (09:53)
[2018-02-27] MEDS ORDERED: MAG SULF 2000 MG/WATER PREMIX 50 ML IV ONE (10:25)
--- NOTE | 2018-02-27 10:40 | NUR ---
Mailmaster Notes: I received a call from Patient's Daughter Jada Corea Stating that she has talk to MD About patient been discharge today back to [facility] (). Per Patient's daughter she wanted for MD to see if patient can be removed from the ventilator if he had made progress enough and would be he be able to be discharge home instead of the facility. According to Patient's daughter Mrs. Jada Corea explained to her that Patient is not able to be removed form the ventilator at this time and that discharge home it is not recommended or even and option at this time. Per daughter she wanted to get advised or a recommendation on who can she talk to about possible options in the future. I told her that it is not in my scope of practice to give any medical recommendations or advise and that if she had any questions in regards to patient medical condition and recommendations it is with MD that she can communicate her concerns, questions and prognosis. I explained to her that usually MD recommendations are followed specially if there is an issue of concern for patient needing higher level of care than a home environment can provide. Patient's daughter agreed with response and stated that she will be contacting and meeting with her family to address issues of concern and follow up with facility case manger if they do have further questions. She thanked me for the information and assistance.
[2018-02-27] MEDS: ASCORBIC ACID 500 MG/5 ML ORASYR GT SCH (11:24)
[2018-02-27] MEDS: MAGNESIUM SULFATE 1GM in DEXTROSE 5% 100 ML PREMIX IV SCH ×2 (11:24→12:35)
--- NOTE | 2018-02-27 11:25 | NUR ---
Ems Educator Notes: I call Jassi training and development coordinator from ([facility]) to inform him that Patient will be discharging from [facility] and returning to their facility. Per Jassi Stated that facility no longer has the Isolation bed due to providing it to an In-Home Patient that needed isolation bed. Therefore; Patient will not be able to return to facility today until isolation bed opens or is colonized. I informed Jassi that MD and Manager Construction will be made aware by these display card writer and will follow up with Patient's updated information.
[2018-02-27 12:00] VITALS: BP 148/57
--- NOTE | 2018-02-27 12:28 | NUR ---
Chart Collector Notes: I faxed to Jassi admissions manager rn at [facility] , Patient's Clinical Information, order for Patient to return to ([facility]) under skilled for wound care patient is an isolation bed. Chicle Grinder Feeder was made aware and will follow up with MD if Patient can be colonized to return to facility at discharge due to [facility] staff no longer having an isolation bed at this time.
--- NOTE | 2018-02-27 12:30 | NUR ---
Electroencephalograph Technologist Notes: Jassi implant polisher at [facility] [place] me [place] stating that their facility has an isolation bed for patient to return to their facility today at discharge from [facility]. Per Jassi Patient can return to room 25-[address] with accepting Dr. Conner after 6:00pm today I thanked him for the information ended the call. These proposal writer made employment case manager Blossom aware of information to set up Patient's transport for Patient back to [facility] [place] after 6:00pm.
[2018-02-27 16:00] VITALS: BP 137/56
--- NOTE | 2018-02-27 16:45 | NUR ---
PT AWAKE ALERT, BS 216, INSULIN SLIDING SCALE 4 UNITS GIVEN
--- NOTE | 2018-02-27 18:00 | NUR ---
CALLED PT'S DAUGHTER, NOTIFIED JAY JAY HER DAD WILL BE TRANSFERRED [place] [facility] , PT'S DAUGHTER VERBALIZED UNDERSTANDING.
--- NOTE | 2018-02-27 18:45 | NUR ---
PT AWAKE, ALERT, NO S/S OF RESPIRATORY DISTRESS NOTED. TRANSPORTATION TEAM PRESENT TO UNIT, REPORT GIVEN. G-TUBE FLUSHED, PICC LINE SALINE LOCKED. PT UNABLE TO SIGN DISCHARGE PAPER.
--- NOTE | 2018-02-27 18:50 | NUR ---
CALLED [facility] CARTER REGARDING PNA VACCINE, TOLD HER PT'S DAUGHTER DID NOT ANSWER MY PHONE CALL, SO I DID NOT GIVE PT PNA VACCINE, CHARGE NURSE AWARE.
--- NOTE | 2018-02-27 18:55 | NUR ---
PT LEFT UNIT WITH [facility] TRANSPORTATION TEAM, CALLED PT'S DAUGHTER , NO ANSWER.
== END 2018-02-27 18:55 | DRG 853 ==
LOC: MED 13:13 → MTU 15:18
PROVIDERS: ADMIT Family Medicine; ATTEND Family Medicine
PROC: 5A1955Z Respiratory Ventilation, Greater than 96 Consecutive Hours (ICD-10-PCS; 2018-02-17)
PROC: 30233N1 Transfusion of Nonautologous Red Blood Cells into Peripheral Vein, Percutaneous Approach (ICD-10-PCS; 2018-02-17)
PROC: 0JB70ZZ Excision of Back Subcutaneous Tissue and Fascia, Open Approach (ICD-10-PCS; principal; 2018-02-22)
PROC: 05H733Z Insertion of Infusion Device into Right Axillary Vein, Percutaneous Approach (ICD-10-PCS; 2018-02-22)
PROC: B54MZZA Ultrasonography of Right Upper Extremity Veins, Guidance (ICD-10-PCS; 2018-02-22)
DX: A41.9 Sepsis, unspecified organism (principal); L89.313 Pressure ulcer of right buttock, stage 3; L89.213 Pressure ulcer of right hip, stage 3; L89.153 Pressure ulcer of sacral region, stage 3; E43 Unspecified severe protein-calorie malnutrition; J96.20 Acute and chronic respiratory failure, unspecified whether with hypoxia or hypercapnia; N17.0 Acute kidney failure with tubular necrosis; G93.40 Encephalopathy, unspecified; J44.1 Chronic obstructive pulmonary disease with (acute) exacerbation; E87.0 Hyperosmolality and hypernatremia; N39.0 Urinary tract infection, site not specified; Z99.11 Dependence on respirator [ventilator] status; J98.11 Atelectasis; D68.59 Other primary thrombophilia; E11.52 Type 2 diabetes mellitus with diabetic peripheral angiopathy with gangrene; I96 Gangrene, not elsewhere classified; G40.909 Epilepsy, unspecified, not intractable, without status epilepticus; E83.41 Hypermagnesemia; Z68.28 Body mass index [BMI] 28.0-28.9, adult; K21.9 Gastro-esophageal reflux disease without esophagitis; J45.909 Unspecified asthma, uncomplicated; D64.9 Anemia, unspecified; E66.9 Obesity, unspecified; G47.33 Obstructive sleep apnea (adult) (pediatric); F03.90 Unspecified dementia, unspecified severity, without behavioral disturbance, psychotic disturbance, mood disturbance, and anxiety; Z74.01 Bed confinement status; Z93.0 Tracheostomy status; Z93.1 Gastrostomy status; E87.5 Hyperkalemia; R74.0 Nonspecific elevation of levels of transaminase and lactic acid dehydrogenase [LDH]; E11.65 Type 2 diabetes mellitus with hyperglycemia; L89.892 Pressure ulcer of other site, stage 2
CPT/HCPCS: 36415; 71045; 73060; 76700; 80048; 80053; 80305; 81001; 82150; 82272; 82607; 82728; 82746; 82948; 83036; 83540; 83605; 83690; 83735; 83880; 83930; 83935; 84100; 84134; 84300; 84439; 84443; 84484; 85025; 85045; 85610; 85730; 86704; 86706; 86708; 86709; 86803; 86886; 86900; 86901; 86920; 87040; 87070; 87081; 87086; 87186; 87340; 93005; 93925; 93970; 94002; 94003; 94640; C1751; C9113; J1815; J1885; J1940; J2060; J2270; J2405; J2543; J3480; J7030; J7042; J7060; J7620; J8597; P9016; Q0092; Q0163